=== PATIENT | male | born 1940 | race Caucasian/White ===

== ENCOUNTER 2017-05-20 09:16 | Emergency (ER) | payer MEDICARE, OTHER ==
[2017-05-20] MEDS ORDERED: Sodium Chloride 0.9% 10 ML Syringe FLUSH PRN (09:36)
[2017-05-20] MEDS ORDERED: Albuterol/Ipratropium 3.0-0.5 MG/3 ML Neb Soln NEB ONE (09:37)
[2017-05-20] MEDS ORDERED: methylPREDNISolone Sodium Succinate 125 MG/2 ML SDV IVPUSH ONE (09:38)
--- NOTE | 2017-05-20 09:45 | EDM.PDOC ---
ED HPI GENERAL MEDICAL PROBLEM - General Chief Complaint: Respiratory Problem Stated Complaint: [facility] Time Seen by Provider: 05/20/17 09:25 Source of Information: Reports: Patient, EMS, Family History Limitations: Reports: No Limitations - History of Present Illness INITIAL COMMENTS - FREE TEXT/NARRATIVE: The patient presents with increased shortness of breath. He arrives by [facility] from his home. 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 He recently moved to [place] from [place]. His primary doctor is Dr Hope and his carding machine operator is Dr Gomez. He recently had his prednisone decreased from 25mg to 20mg and he says this will happen when he does this. He said the increased shortness of breath started today. He came out of the bathroom and it happened. He denies chest pain. He has no fever or chills. He does have a cough at times with yellowish/white sputum. He has edema in his left leg. He says that has been there for about 1 month. He did not have that checked. He has no history of DVT or PE. He has no abdominal pain, nausea or vomiting. He did just get over shingles. Onset: Sudden Duration: Hour(s): Severity: Moderate Worsens with: Reports: Movement Context: Reports: Activity (He was coming out of the bathroom when this started) Associated Symptoms: Reports: Cough, cough w sputum, Shortness of Breath. Denies: Chest Pain, Fever/Chills, Nausea/Vomiting - Related Data Allergies Allergy/AdvReac Type Severity Reaction Status Date / Time No Known Allergies Allergy Verified 05/20/17 09:28 Home Meds: Home Meds Albuterol Sulfate 1 dose INH TID 05/20/17 [History] Albuterol Sulfate [Proventil Hfa] 1 dose INH ASDIRECTED PRN 05/20/17 [History] Aspirin [Adult Low Dose Aspirin EC] 81 mg PO BID 05/20/17 [History] Cholecalciferol (Vitamin D3) [Vitamin D3] 1 tab PO DAILY 05/20/17 [History] Glimepiride [Amaryl] 4 mg PO BID 05/20/17 [History] Glucosa [place] 2KCl/Chondroitin Rivers [Glucosamine-Chondroitin Cap] 2 tab PO DAILY 12/28 [History] Insulin Isophane NPH, Human [NovoLIN N] 40 units SUBCUT DAILY 05/20/17 [History] Multivitamin with Minerals [Multivitamins with Minerals] 1 tab PO DAILY [History] Mycophenolate Mofetil [Cellcept] 1,000 mg PO BID 05/20/17 [History] [place]-3/DHA/Epa/Fish Oil [[place]-3 Fish Oil 1,200 MG Sfgl] 1,200 mg PO DAILY 12/28 [History] Pantoprazole Sodium [Protonix] 40 mg PO DAILY 05/20/17 [History] Potassium Chloride 20 meq PO DAILY 05/20/17 [History] Prednisone [IMW: predniSONE] 20 mg PO DAILY 05/20/17 [History] Simvastatin [Zocor] 20 mg PO DAILY 05/20/17 [History] Sulfamethoxazole/Trimethoprim [Bactrim Ds Tablet] 1 tab PO MOWEFR 05/20/17 [ History] metFORMIN HCl [Metformin HCl] 1,000 mg PO BID 05/20/17 [History] Past Medical History Cardiovascular History: Reports: Heart Failure Respiratory History: Reports: Interstitial Lung Disease, Other (See Below) Other Respiratory History: rheumatoid lung, 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 Harmon and Dr. Raygoza in [place] Endocrine/Metabolic History: Reports: Diabetes, Type II Social & Family History - Tobacco Use Smoking Status *Q: Former Smoker Used Tobacco, but Quit: Yes Month Tobacco Last Used: 1985 - Caffeine Use Caffeine Use: Reports: Soda, Tea - Recreational Drug Use Recreational Drug Use: No ED ROS GENERAL - Review of Systems Review Of Systems: See Below Constitutional: Reports: No Symptoms HEENT: Reports: No Symptoms Respiratory: Reports: Shortness of Breath, Cough, Sputum Cardiovascular: Reports: Edema (Left leg). Denies: Chest Pain Endocrine: Reports: No Symptoms GI/Abdominal: Reports: No Symptoms : Reports: No Symptoms Musculoskeletal: Reports: Other (Edema of the left leg) ED EXAM, GENERAL - Physical Exam Exam: See Below Exam Limited By: No Limitations General Appearance: Alert, No Apparent Distress Ears: Normal External Exam Nose: Normal Inspection Head: Atraumatic, Normocephalic Neck: Normal Inspection Respiratory/Chest: No Respiratory Distress, Decreased Breath Sounds, Wheezing ( Mild) Cardiovascular: Regular Rate, Rhythm, No Murmur, Other (Moderate edema to the left leg) Course - Vital Signs Last Recorded V/S: Last Vital Signs Temp 96.7 F 05/20/17 09:23 Pulse 81 05/20/17 09:23 Resp 20 05/20/17 09:23 BP 146/76 H 05/20/17 09:23 Pulse Ox 96 05/20/17 09:59 - Orders/Labs/Meds Orders: Active Orders 24 hr Category Date Time Status Cardiac Monitoring [RC] . DIRECTED Care 05/20/17 09:36 Active EKG Documentation Completion [RC] STAT Care 05/20/17 09:37 Active Oxygen Therapy [RC] PRN Care 05/20/17 09:36 Active Peripheral IV Care [RC] . DIRECTED Care 05/20/17 09:37 Active RT Aerosol Therapy [RC] ASDIRECTED Care 05/20/17 09:38 Active Chest 1V Frontal [CR] Stat Exams 05/20/17 09:37 Taken VL Duplex Lwr Ext Veins Ltd Lt [US] Stat Exams 05/20/17 09:38 Taken PRO B-TYPE NATRIUR PEPT,BNPPRO [CHEM] Stat Lab 05/20/17 09:36 Ordered Sodium Chloride 0.9% [Saline Flush] Med 05/20/17 09:36 Active 10 ml FLUSH ASDIRECTED PRN Peripheral IV Insertion Adult [OM.PC] Stat Oth 05/20/17 09:36 Ordered Medication Orders Sodium Chloride (Saline Flush) 10 ml FLUSH ASDIRECTED PRN PRN Reason: Keep Vein Open Last Admin: 05/20/17 09:53 Dose: 10 ml Labs: Laboratory Tests 05/20/17 05/20/17 05/20/17 Range/Units 09:53 09:53 09:53 WBC 8.86 (4.23-9.07) K/mm3 RBC 4.21 L (4.63-6.08) M/mm3 Hgb 11.7 L (13.7-17.5) gm/L Hct 37.2 L (40.1-51.0) % MCV 88.4 (79.0-92.2) fl MCH 27.8 (25.7-32.2) pg MCHC 31.5 L (32.2-35.5) g/dl RDW Std Deviation 44.8 H (35.1-43.9) fL Plt Count 269 (163-337) K/mm3 MPV 9.8 (9.4-12.3) fl Neut % (Auto) 63.7 (34.0-67.9) % Lymph % (Auto) 21.9 (21.8-53.1) % [place] % (Auto) 8.0 (5.3-12.2) % Eos % (Auto) 5.3 (0.8-7.0) Baso % (Auto) 0.2 (0.1-1.2) % Neut # (Auto) 5.64 H (1.78-5.38) K/mm3 Lymph # (Auto) 1.94 (1.32-3.57) K/mm3 [place] # (Auto) 0.71 (0.30-0.82) K/mm3 Eos # (Auto) 0.47 (0.04-0.54) K/mm3 Baso # (Auto) 0.02 (0.01-0.08) K/mm3 D-Dimer, Quantitative 0.45 (0.19-0.59) mg/L Sodium 142 (136-145) mEq/L Potassium 3.5 (3.5-5.1) mEq/L Chloride 102 (98-107) mEq/L Carbon Dioxide 34 H (21-32) mEq/L Anion Gap 9.5 (5-15) BUN 19 H (7-18) mg/dL Creatinine 1.1 (0.7-1.3) mg/dL Est Cr Clr Drug Dosing 64.67 mL/min Estimated GFR (MDRD) > 60 (>60) mL/min BUN/Creatinine Ratio 17.3 (14-18) Glucose 107 (83-115) mg/dL Calcium 9.0 (8.5-10.1) mg/dL Total Bilirubin 0.4 (0.2-1.0) mg/dL AST 20 (15-37) U/L ALT 38 (16-63) U/L Alkaline Phosphatase 60 (46-116) U/L Troponin I < 0.017 (0.00-0.056) ng/mL Total Protein 6.4 (6.4-8.2) g/dl Albumin 3.0 L (3.4-5.0) g/dl Globulin 3.4 gm/dL Albumin/Globulin Ratio 0.9 L (1-2) Meds: Medications Generic Name Dose Route Start Last Admin Trade Name Hans PRN Reason Stop Dose Admin Sodium Chloride 10 ml 05/20/17 09:36 05/20/17 09:53 Saline Flush FLUSH 10 ml ASDIRECTED PRN Administration Keep Vein Open Discontinued Medications Generic Name Dose Route Start Last Admin Trade Name Hans PRN Reason Stop Dose Admin Albuterol/Ipratropium 3 ml 05/20/17 09:37 05/20/17 09:58 Duoneb 3.0-0.5 Mg/3 Ml NEB 05/20/17 09:38 3 ml ONETIME ONE Administration Methylprednisolone Sodium Succinate 60 mg 05/20/17 09:38 05/20/17 09:53 Solu-Medrol IVPUSH 05/20/17 09:39 60 mg ONETIME ONE Administration - Re-Assessments/Exams Free Text/Narrative Re-Assessment/Exam: 05/20/17 09:46 I ordered oxygen, IV saline lock, EKG, CXR, labs, US of his left leg, solu- medrol 60mg IV and a duoneb. 05/20/17 11:31 His EKG shows a NSR with no acute changes. His CXR shows interstitial lung disease but no infiltrates. His CBC looks good. His CMP looks good. His D- dimer was negative. His troponin is negative. The US of his left leg is negative for DVT. He feels better. I feel he needs to go back up to the 25mg daily of prednisone. Departure - Departure Time of Disposition: 11:35 Disposition: Home, Self-Care 01 Condition: Good Clinical Impression: Interstitial lung disease, Edema of left lower extremity Dyspnea Qualifiers: Dyspnea type: shortness of breath Qualified Code(s): R06.02 - Shortness of breath; R06.00 - Dyspnea, unspecified; R06.01 - Orthopnea - Discharge Information Referrals: PCP,None [Primary Care Provider] - Renato Mueller MD [Physician] - 1 Week Forms: ED Department Discharge Additional Instructions: Take your medication as prescribed but increase your prednisone to 25mg daily. Call your carding machine operator at let him know what happened. Follow up with Dr Mueller one of our internal medicine doctors in [facility]. Some other internal medicine doctors are Dr Caballero, Dr Elizondo and Dr Schwartz. They are all very good doctors and other options if you cannot get into see Dr Mueller. Please return if you are worse. - My Orders Last 24 Hours: My Active Orders 05/20/17 09:36 Cardiac Monitoring [RC] . DIRECTED Oxygen Therapy [RC] PRN PRO B-TYPE NATRIUR PEPT,BNPPRO [CHEM] Stat Sodium Chloride 0.9% [Saline Flush] 10 ml FLUSH ASDIRECTED PRN Peripheral IV Insertion Adult [OM.PC] Stat 05/20/17 09:37 EKG Documentation Completion [RC] STAT Peripheral IV Care [RC] . DIRECTED Chest 1V Frontal [CR] Stat 05/20/17 09:38 RT Aerosol Therapy [RC] ASDIRECTED VL Duplex Lwr Ext Veins Ltd Lt [US] Stat - Assessment/Plan Last 24 Hours: My Active Orders 05/20/17 09:36 Cardiac Monitoring [RC] . DIRECTED Oxygen Therapy [RC] PRN PRO B-TYPE NATRIUR PEPT,BNPPRO [CHEM] Stat Sodium Chloride 0.9% [Saline Flush] 10 ml FLUSH ASDIRECTED PRN Peripheral IV Insertion Adult [OM.PC] Stat 05/20/17 09:37 EKG Documentation Completion [RC] STAT Peripheral IV Care [RC] . DIRECTED Chest 1V Frontal [CR] Stat 05/20/17 09:38 RT Aerosol Therapy [RC] ASDIRECTED VL Duplex Lwr Ext Veins Ltd Lt [US] Stat
--- NOTE | 2017-05-22 08:01 | US ---
Left lower extremity deep venous ultrasound: Duplex and color flow imaging was obtained of the left common femoral, proximal greater saphenous, superficial femoral, popliteal, posterior tibial and peroneal veins. Right common femoral vein was also evaluated. Findings: Normal compression, phasic flow and augmentation are seen within the left lower extremity deep veins. Right common femoral vein shows normal augmentation. Impression: 1. No findings of deep venous thrombosis within the left lower extremity or within the right common femoral vein. Diagnostic code #1 I agree with preliminary report from [facility], finalized at 05/20/17, 12:09 PM Central Time
--- NOTE | 2017-05-22 08:01 | CR ---
Chest: Frontal view of the chest was obtained. Comparison: No prior chest x-ray. Heart size is normal. Widening of the mediastinum is seen which is felt to be chronic. Diffuse increased lung markings are seen. Lungs otherwise are clear with no alveolar type densities. Bony structures show degenerative change within the left hip and osteopenia. Impression: 1. Diffuse increased lung markings. Without old studies uncertain if findings are due to diffuse fibrosis or represent acute interstitial change. Former etiology is felt to be most likely. 2. Other incidental findings. Diagnostic code #3
== END 2017-05-20 11:50 | disposition home or self-care (01) ==
LOC: JD.ED 09:16
DX: J84.9 Interstitial pulmonary disease, unspecified (principal); R60.0 Localized edema; R06.00 Dyspnea, unspecified; I50.9 Heart failure, unspecified; E11.9 Type 2 diabetes mellitus without complications; Z87.891 Personal history of nicotine dependence; Z79.4 Long term (current) use of insulin; Z79.899 Other long term (current) drug therapy
CPT/HCPCS: 36415; 71045; 80053; 83880; 84484; 85025; 85379; 93005; 93971; 94640; 96374; 99285; J2930; J7050; 99284

== ENCOUNTER 2018-05-12 13:26 | Emergency (ER) | payer MEDICARE, OTHER ==
--- NOTE | 2018-05-12 13:51 | EDM.PDOC ---
ED HPI GENERAL MEDICAL PROBLEM - General Chief Complaint: Neurological Problem Stated Complaint: [facility] Time Seen by Provider: 05/12/18 13:37 Source of Information: Reports: Patient, RN Notes Reviewed - History of Present Illness INITIAL COMMENTS - FREE TEXT/NARRATIVE: 77 year old male has been brought in by ambulance status post fall at home, he became ill with worsening cough last evening, chills, possible fever. He has been weak today, needed help to get up out of a chair, was walking to the bathroom when he fell. Not clear if he tripped or just simply lost his balance due to underlying weakness. Unable to get up on his own, EMS called, seemed very droopy, lethargic at scene, transported here without further incident. 15:15. His and other family here, able to give more detailed hx. She states he has underlying interstitial lung disease, pulmonary fibrosis on chronically at 8 L NC. Also diabetic on insulin and metformin. - Related Data Allergies Allergy/AdvReac Type Severity Reaction Status Date / Time No Known Allergies Allergy Verified 05/12/18 13:40 Home Meds: Home Meds Albuterol Sulfate 1 dose INH TID 05/20/17 [History] Albuterol Sulfate [Proventil Hfa] 1 dose INH ASDIRECTED PRN 05/20/17 [History] Aspirin [Adult Low Dose Aspirin EC] 81 mg PO BID 05/20/17 [History] Cholecalciferol (Vitamin D3) [Vitamin D3] 5,000 unit PO DAILY 05/20/17 [History] Glucosa Rivers 2KCl/Chondroitin Rivers [Glucosamine-Chondroitin Cap] 2 tab PO DAILY 12/28 [History] Insulin Isophane NPH, Human [NovoLIN N] 40 units SUBCUT DAILY 05/20/17 [History] Multivitamin with Minerals [Multivitamins with Minerals] 1 tab PO DAILY [History] [place]-3/DHA/Epa/Fish Oil [[place]-3 Fish Oil 1,200 MG Sfgl] 1,200 mg PO DAILY 12/28 [History] Pantoprazole Sodium [Protonix] 40 mg PO DAILY 05/20/17 [History] Potassium Chloride 20 meq PO BID 05/20/17 [History] Prednisone [IMW: predniSONE] 25 mg PO DAILY 05/20/17 [History] Simvastatin [Zocor] 40 mg PO DAILY 05/20/17 [History] Sulfamethoxazole/Trimethoprim [Bactrim Ds Tablet] 1 tab PO MOWEFR 05/20/17 [ History] metFORMIN HCl [Metformin HCl] 1,000 mg PO BID 05/20/17 [History] Ellipta. 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 Raygoza in [place] Endocrine/Metabolic History: Reports: Diabetes, Type II Social & Family History - Caffeine Use Caffeine Use: Reports: Soda, Tea ED ROS GENERAL - Review of Systems Review Of Systems: Unable To Obtain (ROS somewhat limited, patient does not volunteer any information, does answer simple questions, more information obtained from after she arrived) Constitutional: Reports: Fever, Chills HEENT: Reports: Other (nasal clair. ). Denies: Throat Pain Respiratory: Reports: Shortness of Breath (chronically), Cough, Sputum ( occasional) Cardiovascular: Reports: Lightheadedness. Denies: Chest Pain GI/Abdominal: Denies: Abdominal Pain, Diarrhea, Vomiting Skin: Denies: Rash Neurological: Reports: Dizziness - Physical Exam Exam: See Below Exam Limited By: Altered Mental Status General Appearance: Other (very overweight, drowsy, does arouse to answer simple questions) Eye Exam: Bilateral Eye: PERRL Throat/Mouth: Normal Inspection, Normal Oropharynx Head Exam: Other (abrasion anterior forehead) Neck: Non-Tender Respiratory/Chest: Respiratory Distress (moderate tachypnea) Cardiovascular: Tachycardia GI/Abdominal: Soft, Non-Tender Neuro Exam (Abbreviated): No Motor/Sensory Deficits, Other (moderately drowsy, he does open eyes, answers simple questions, does not volunteer any information) Extremities: Pedal Edema (bilat, greater L than R) Skin Exam: Warm, Dry, Normal Color, No Rash Course - Vital Signs Last Recorded V/S: Last Vital Signs Temp 103.1 F H 05/12/18 14:31 Pulse 101 H 05/12/18 13:34 Resp 35 H 05/12/18 13:34 BP 129/62 05/12/18 13:34 Pulse Ox 91 L 05/12/18 16:07 - Orders/Labs/Meds Orders: Active Orders 24 hr Category Date Time Status EKG 12 Lead [EKG Documentation Completion] [RC] STAT Care 05/12/18 14:09 Active POC Glucose [Blood Glucose Check, Bedside] [RC] ONETIME Care 05/12/18 13:50 Active RT Aerosol Therapy [RC] ASDIRECTED Care 05/12/18 15:49 Active Chest 1V Frontal [CR] Stat Exams 05/12/18 13:49 Taken CULTURE BLOOD [BC] Stat Lab 05/12/18 14:20 Received CULTURE BLOOD [BC] Stat Lab 05/12/18 14:30 Received PRO B-TYPE NATRIUR PEPT,BNPPRO [CHEM] Stat Lab 05/12/18 14:20 Received Sodium Chloride 0.9% [Normal Saline] 1,000 ml Med 05/12/18 16:15 Active IV ONETIME Medication Orders Sodium Chloride (Normal Saline) 1,000 mls @ 999 mls/hr IV ONETIME FERNANDA Last Admin: 05/12/18 17:04 Dose: 999 mls/hr Labs: Laboratory Tests 05/12/18 05/12/18 05/12/18 Range/Units 14:20 14:20 14:20 WBC 10.09 H (4.23-9.07) K/mm3 RBC 4.54 L (4.63-6.08) M/mm3 Hgb 12.8 L (13.7-17.5) gm/L Hct 40.9 (40.1-51.0) % MCV 90.1 (79.0-92.2) fl MCH 28.2 (25.7-32.2) pg MCHC 31.3 L (32.2-35.5) g/dl RDW Std Deviation 48.2 H (35.1-43.9) fL Plt Count 260 (163-337) K/mm3 MPV 9.6 (9.4-12.3) fl Neut % (Auto) 75.3 H (34.0-67.9) % Lymph % (Auto) 10.2 L (21.8-53.1) % [place] % (Auto) 11.0 (5.3-12.2) % Eos % (Auto) 2.4 (0.8-7.0) Baso % (Auto) 0.2 (0.1-1.2) % Neut # (Auto) 7.60 H (1.78-5.38) K/mm3 Lymph # (Auto) 1.03 L (1.32-3.57) K/mm3 [place] # (Auto) 1.11 H (0.30-0.82) K/mm3 Eos # (Auto) 0.24 (0.04-0.54) K/mm3 Baso # (Auto) 0.02 (0.01-0.08) K/mm3 Puncture Site ABG pH (7.35-7.45) ABG pCO2 (35.0-45.0) mmHg ABG pO2 (80.0-100.0) mmHg ABG HCO3 (22.0-26.0) meq/L ABG O2 Saturation (96.0-97.0) % ABG Base Excess (-2-2.0) Ross Test O2 Delivery Device Oxygen Flow Rate FiO2 (21.00-100.00) % Sodium 140 (136-145) mEq/L Potassium 3.7 (3.5-5.1) mEq/L Chloride 100 (98-107) mEq/L Carbon Dioxide 33 H (21-32) mEq/L Anion Gap 10.7 (5-15) BUN 20 H (7-18) mg/dL Creatinine 1.4 H (0.7-1.3) mg/dL Est Cr Clr Drug Dosing 50.04 mL/min Estimated GFR (MDRD) 49 (>60) mL/min BUN/Creatinine Ratio 14.3 (14-18) Glucose 84 (83-115) mg/dL Lactic Acid (0.4-2.0) mmol/L Calcium 9.6 (8.5-10.1) mg/dL Total Bilirubin 0.8 (0.2-1.0) mg/dL AST 46 H (15-37) U/L ALT 75 H (16-63) U/L Alkaline Phosphatase 64 (46-116) U/L C-Reactive Protein 3.1 H* (<1.0) mg/dL Total Protein 7.3 (6.4-8.2) g/dl Albumin 3.3 L (3.4-5.0) g/dl Globulin 4.0 gm/dL Albumin/Globulin Ratio 0.8 L (1-2) 05/12/18 05/12/18 Range/Units 14:35 18:06 WBC (4.23-9.07) K/mm3 RBC (4.63-6.08) M/mm3 Hgb (13.7-17.5) gm/L Hct (40.1-51.0) % MCV (79.0-92.2) fl MCH (25.7-32.2) pg MCHC (32.2-35.5) g/dl RDW Std Deviation (35.1-43.9) fL Plt Count (163-337) K/mm3 MPV (9.4-12.3) fl Neut % (Auto) (34.0-67.9) % Lymph % (Auto) (21.8-53.1) % [place] % (Auto) (5.3-12.2) % Eos % (Auto) (0.8-7.0) Baso % (Auto) (0.1-1.2) % Neut # (Auto) (1.78-5.38) K/mm3 Lymph # (Auto) (1.32-3.57) K/mm3 [place] # (Auto) (0.30-0.82) K/mm3 Eos # (Auto) (0.04-0.54) K/mm3 Baso # (Auto) (0.01-0.08) K/mm3 Puncture Site Lt radial ABG pH 7.43 (7.35-7.45) ABG pCO2 45.6 H (35.0-45.0) mmHg ABG pO2 63.0 L (80.0-100.0) mmHg ABG HCO3 29.8 H (22.0-26.0) meq/L ABG O2 Saturation 91.6 L (96.0-97.0) % ABG Base Excess 5.2 H (-2-2.0) Ross Test Positive O2 Delivery Device Nasal cannula Oxygen Flow Rate 8.0 FiO2 0.00 L (21.00-100.00) % Sodium (136-145) mEq/L Potassium (3.5-5.1) mEq/L Chloride (98-107) mEq/L Carbon Dioxide (21-32) mEq/L Anion Gap (5-15) BUN (7-18) mg/dL Creatinine (0.7-1.3) mg/dL Est Cr Clr Drug Dosing mL/min Estimated GFR (MDRD) (>60) mL/min BUN/Creatinine Ratio (14-18) Glucose (83-115) mg/dL Lactic Acid 2.4 H (0.4-2.0) mmol/L Calcium (8.5-10.1) mg/dL Total Bilirubin (0.2-1.0) mg/dL AST (15-37) U/L ALT (16-63) U/L Alkaline Phosphatase (46-116) U/L C-Reactive Protein (<1.0) mg/dL Total Protein (6.4-8.2) g/dl Albumin (3.4-5.0) g/dl Globulin gm/dL Albumin/Globulin Ratio (1-2) Meds: Medications Generic Name Dose Route Start Last Admin Trade Name Freq PRN Reason Stop Dose Admin Sodium Chloride 1,000 mls @ 999 mls/hr 05/12/18 16:15 05/12/18 17:04 Normal Saline IV 999 mls/hr ONETIME FERNANDA Administration Discontinued Medications Generic Name Dose Route Start Last Admin Trade Name Freq PRN Reason Stop Dose Admin Acetaminophen 975 mg 05/12/18 15:24 05/12/18 16:00 Tylenol PO 05/12/18 15:25 975 mg NOW ONE Administration Albuterol/Ipratropium 3 ml 05/12/18 15:48 05/12/18 16:04 Duoneb 3.0-0.5 Mg/3 Ml NEB 05/12/18 15:49 3 ml ONETIME ONE Administration Iopamidol 100 ml 05/12/18 16:32 05/12/18 16:46 Isovue-300 (61%) IVPUSH 05/12/18 16:33 100 ml ONETIME ONE Administration Methylprednisolone Sodium Succinate 125 mg 05/12/18 18:24 05/12/18 18:49 Solu-Medrol IVPUSH 05/12/18 18:25 125 mg ONETIME ONE Administration Oseltamivir Phosphate 75 mg 05/12/18 15:52 05/12/18 16:01 Tamiflu PO 05/12/18 15:53 75 mg ONETIME ONE Administration Sodium Chloride 10 ml 05/12/18 16:32 05/12/18 16:46 Saline Flush FLUSH 05/12/18 16:33 10 ml ONETIME ONE Administration - Re-Assessments/Exams Free Text/Narrative Re-Assessment/Exam: 05/12/18 05/12/18 16:[address] Tovar regarding hospital admission, blood culture obtained on arrival to ED, has Influ. A. He did get a flu shot this year. CXR shows severe severe increase interstitial markings similar to CXR of 1 yr ago read out as pul fibrosis. WBC 10,000. O2 sats have been running 90 to 92 % at 8 L NC which is what he uses at home. Labs indicate he is likely somewhat dehydrated. Will give 1 liter NS. Lactic acid elevated at 2.4. Dr Tovar has requested chest CT to check for pneumonia. 17:40. chest CT does not show pneumonia. Patient more alert after 1 liter NS. 18:00 Dr Tovar has seen patient, requesting he be transferred to [facility] due to underlying pul fibrosis, diabetes, high risk for complications, even . Family would prefer he be admitted here but OK with transfer. 18:35. Has taken 35 minutes to complete transfer, long wait for admission coordinator to call back and than a shorter wait for Hospitalist. Dr Morales, Hospitalist for [facility] does accept patient for direct admit. 18:55. [place] ambulance crew tied up with a different transfer, no other crew available, [facility] willing to come down and transfer patient. With transfer in mind have done ABG's, they are OK, Ph 7.43, PO2 63, C02 45.6. see labs for details. 05/12/18 19:34. Although patient had fever, tachypnea, tachycardia and relative hypoxia he has underlying illness, now influenza on top of that. It is not expected that he is septic. He is being transferred. Admission process started about 3 1/2 hrs ago. Patient is now more alert, breathing, moving air more comfortably after nebs, IV fluid, tylenol. Actually asked to go home awhile ago. That is not reasonable. Repeat lactic acid not ordered. Departure - Departure Time of Disposition: 18:30 Disposition: DC/Tfer to Acute Hospital 02 Condition: Serious Clinical Impression: Influenza A, Pulmonary fibrosis - Discharge Information Referrals: Renato Mueller MD [Primary Care Provider] - Forms: ED Department Discharge - My Orders Last 24 Hours: My Active Orders 05/12/18 13:49 Chest 1V Frontal [CR] Stat 05/12/18 13:50 POC Glucose [Blood Glucose Check, Bedside] [RC] ONETIME 05/12/18 14:09 EKG 12 Lead [EKG Documentation Completion] [RC] STAT 05/12/18 14:20 CULTURE BLOOD [BC] Stat PRO B-TYPE NATRIUR PEPT,BNPPRO [CHEM] Stat 05/12/18 14:30 CULTURE BLOOD [BC] Stat 05/12/18 15:49 RT Aerosol Therapy [RC] ASDIRECTED 05/12/18 16:15 Sodium Chloride 0.9% [Normal Saline] 1,000 ml IV ONETIME - Assessment/Plan Last 24 Hours: My Active Orders 05/12/18 13:49 Chest 1V Frontal [CR] Stat 05/12/18 13:50 POC Glucose [Blood Glucose Check, Bedside] [RC] ONETIME 05/12/18 14:09 EKG 12 Lead [EKG Documentation Completion] [RC] STAT 05/12/18 14:20 CULTURE BLOOD [BC] Stat PRO B-TYPE NATRIUR PEPT,BNPPRO [CHEM] Stat 05/12/18 14:30 CULTURE BLOOD [BC] Stat 05/12/18 15:49 RT Aerosol Therapy [RC] ASDIRECTED 05/12/18 16:15 Sodium Chloride 0.9% [Normal Saline] 1,000 ml IV ONETIME
--- NOTE | 2018-05-12 15:03 | CT ---
Head CT Technique: Multiple axial sections through the brain were obtained. Intravenous contrast was not utilized. Comparison: No prior intracranial imaging. Findings: Ventricles along with basal cisterns and sulci over the convexities are mildly prominent. No abnormal parenchymal densities are seen. No evidence of intracranial hemorrhage. No midline shift or mass effect is seen. Bone window settings were reviewed which shows no acute calvarial abnormality. 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 No acute finding is seen within the paranasal sinuses. Impression: 1. Mild generalized atrophy. 2. 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 3. No acute intracranial abnormality is identified. Diagnostic code #2
[2018-05-12] MEDS ORDERED: Acetaminophen 325 MG Tab PO ONE (15:24)
[2018-05-12] MEDS ORDERED: Albuterol/Ipratropium 3.0-0.5 MG/3 ML Neb Soln NEB ONE (15:48)
[2018-05-12] MEDS ORDERED: Oseltamivir 75 MG Cap PO ONE (15:52)
[2018-05-12] MEDS ORDERED: Sodium Chloride 0.9% 1,000 ML IV SCH (16:15)
[2018-05-12] MEDS ORDERED: Sodium Chloride 0.9% 10 ML Syringe FLUSH ONE (16:32)
[2018-05-12] MEDS ORDERED: Iopamidol 612 MG/ML 100 ML Bottle IVPUSH ONE (16:32)
--- NOTE | 2018-05-12 17:03 | CT ---
CT chest Technique: Multiple axial sections through the chest were obtained. Intravenous contrast was utilized. Comparison: Prior chest x-ray of 05/20/17 and 05/12/18 (1:54 PM). Findings: Diffuse pulmonary fibrosis is seen. No focal parenchymal change is seen. I do not believe any acute change is present within either lung. Slight pleural thickening is noted on both sides of the chest which is most likely chronic. Mediastinum shows several lymph nodes which are most likely incidental and due to old inflammatory change. Aorta shows no aneurysm with atherosclerotic calcification. Mild coronary artery calcification is seen. Small hiatal hernia is noted. Fatty infiltration noted within the liver. Bone window settings shows scattered degenerative change throughout the spine. No acute osseous abnormality is appreciated. Impression: 1. Severe pulmonary fibrosis. Nothing acute is suspected within either lung. Other incidental findings. Diagnostic code #3
[2018-05-12] MEDS ORDERED: methylPREDNISolone Sodium Succinate 125 MG/2 ML SDV IVPUSH ONE (18:24)
--- NOTE | 2018-05-13 13:18 | CR ---
Chest: Portable view of the chest was obtained. Comparison: Prior chest x-ray of 05/20/17. Pulmonary vessels are congested. Focal density is noted within the right upper lung. Heart size at the upper limits of normal. Tortuous thoracic aorta is seen. Bony structures are grossly intact. Impression: 1. Pulmonary vascular congestion. This appears fairly stable from prior exam and uncertain how much of this is acute versus chronic. 2. Focal density within the right upper lung most likely representing superimposed area of pneumonia given history of cough and fever. Diagnostic code #3
== END 2018-05-12 19:35 ==
LOC: JD.ED 13:26
DX: J10.1 Influenza due to other identified influenza virus with other respiratory manifestations (principal); E11.9 Type 2 diabetes mellitus without complications; J84.10 Pulmonary fibrosis, unspecified; Z79.899 Other long term (current) drug therapy
CPT/HCPCS: 36415; 36600; 70450; 71045; 71260; 80053; 82803; 82962; 83605; 83880; 85025; 86140; 87040; 87804; 93005; 94640; 96361; 96374; 99285; A9270; J2930; J7040; Q9967; 93010; 99284; J7620-GY

== ENCOUNTER 2018-06-18 17:01 | Emergency (ER) | payer MEDICARE, OTHER ==
--- NOTE | 2018-06-18 17:39 | EDM.PDOC ---
ED HPI GENERAL MEDICAL PROBLEM - General Chief Complaint: Cardiovascular Problem Stated Complaint: [facility] Time Seen by Provider: 06/18/18 17:15 Source of Information: Reports: Patient, Family History Limitations: Reports: No Limitations - History of Present Illness INITIAL COMMENTS - FREE TEXT/NARRATIVE: Patient is a 77-year-old male with a history of interstitial lung disease, O2 dependence, atrial fibrillation, poor pulmonary function who presents to the ED complaining of episode of atrial fibrillation in the 170s with increasing shortness of breath. Patient states earlier today developed increasing shortness of breath with exertion a little worse than normal. He was notified by Hoangdulce Harperck that his monitor indicated a heart rate in the 170s which was atrial fibrillation. He was instructed to come to the emergency department immediately. Upon admission to the ED patients heart rate is within normal limits sinus in nature. At no time has patient developed any chest pain associated with this. He did have some slight discomfort to the left side of his neck and his left arm that has dissipated. States he slept wrong on his neck. He has not felt as if he is going to pass out at any time. There's been no abdominal pain associated with this nor any diaphoresis, nausea/vomiting, or any additional complaints. He was evaluated May 16, 2018 with a diagnosis of influenza. He was transferred to [place] where he had a episode of atrial fibrillation and was placed on metoprolol. He's had no further episodes up until today. Patient is a poorly controlled diabetic. EMS was contacted and the patient was transported to the ED. Patient remains sinus rhythm with PACs. Per patient he is on Eliquis. Left Neck Pain Score (Numeric/FACES): 6 - Related Data Allergies Allergy/AdvReac Type Severity Reaction Status Date / Time No Known Allergies Allergy Verified 05/12/18 13:40 Home Meds: Home Meds Albuterol Sulfate 1 dose INH BID 05/20/17 [History] Albuterol Sulfate [Proventil Hfa] 1 dose INH Q4H PRN 05/20/17 [History] Aspirin [Adult Low Dose Aspirin EC] 81 mg PO BID 05/20/17 [History] Insulin Isophane NPH, Human [NovoLIN N] 40 units SUBCUT DAILY 05/20/17 [History] Multivitamin with Minerals [Multivitamins with Minerals] 1 tab PO DAILY [History] Presho-3/DHA/Epa/Fish Oil [Presho-3 Fish Oil 1,200 MG Sfgl] 2,000 mg PO DAILY 12/28 [History] Pantoprazole Sodium [Protonix] 40 mg PO DAILY 05/20/17 [History] Potassium Chloride 20 meq PO BID 05/20/17 [History] Prednisone [IMW: predniSONE] 25 mg PO DAILY 05/20/17 [History] Simvastatin [Zocor] 40 mg PO DAILY 05/20/17 [History] Glucosamine/D3/Boswellia Nalini [Osteo Bi-Flex Caplet] 2 tab PO DAILY 05/12/18 [ History] Budesonide [Pulmicort] 1 inh NEB BID 06/18/18 [History] Ergocalciferol (Vitamin D2) [Vitamin D2] 0 mg PO DAILY 06/18/18 [History] Furosemide 80 mg PO DAILY 06/18/18 [History] Glimepiride 4 mg PO BID 06/18/18 [History] Metoprolol Succinate [Toprol XL] 25 mg PO DAILY 06/18/18 [History] Sulfamethoxazole/Trimethoprim [Bactrim Ds Tablet] 1 tab PO MOWEFR 06/18/18 [ History] Umeclidinium Brm/Vilanterol Tr [Anoro Ellipta 62.5-25 MCG] 1 puff INH DAILY 10/29 [History] metFORMIN HCl [Metformin HCl] 1,000 mg PO BID 06/18/18 [History] Past Medical History Cardiovascular History: Reports: Afib, Heart Failure, High Cholesterol, Hypertension Respiratory History: Reports: Interstitial Lung Disease, Other (See Below) Other Respiratory History: rheumatoid lung, 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 Harmon and Dr. Raygoza in [place] Musculoskeletal History: Reports: Other (See Below) Other Musculoskeletal History: rt hand with silicone joint and tendon repair Endocrine/Metabolic History: Reports: Diabetes, Type II Social & Family History - Tobacco Use Smoking Status *Q: Former Smoker Used Tobacco, but Quit: Yes Month/Year Tobacco Last Used: 1985 - Caffeine Use Caffeine Use: Reports: Coffee, Soda, Tea - Recreational Drug Use Recreational Drug Use: No ED ROS GENERAL - Review of Systems Review Of Systems: ROS reveals no pertinent complaints other than HPI. ED EXAM, GENERAL - Physical Exam Exam: See Below Exam Limited By: No Limitations (Able to speak in full sentences with 8 liters per minute nasal cannula.) General Appearance: Alert, WD/WN, No Apparent Distress Eye Exam: Bilateral Eye: Normal Inspection Ears: Hearing Grossly Normal Nose: Normal Inspection Throat/Mouth: Normal Voice, No Airway Compromise Neck: Normal Inspection, Supple Respiratory/Chest: No Respiratory Distress, No Accessory Muscle Use, Chest Non- Tender Cardiovascular: Normal Peripheral Pulses, Regular Rate, Rhythm, No Murmur Peripheral Pulses: 2+: Radial (L), Radial (R) GI/Abdominal: Normal Bowel Sounds Extremities: Normal Inspection, Normal Range of Motion, Non-Tender, Pedal Edema (1+ bilaterally) Neurological: Alert, Oriented, CN II-XII Intact, Normal Cognition, No Motor/ Sensory Deficits Psychiatric: Normal Affect, Normal Mood Skin Exam: Warm, Dry, Intact, Normal Color Course - Vital Signs Last Recorded V/S: Last Vital Signs Temp 98.1 F 06/18/18 17:07 Pulse 82 06/18/18 21:35 Resp 21 H 06/18/18 17:07 BP 118/62 06/18/18 21:35 Pulse Ox 8 L 06/18/18 17:07 - Orders/Labs/Meds Labs: Laboratory Tests 06/18/18 06/18/18 06/18/18 Range/Units 17:10 17:10 17:10 WBC 12.90 H (4.23-9.07) K/mm3 RBC 4.64 (4.63-6.08) M/mm3 Hgb 13.0 L (13.7-17.5) gm/L Hct 42.4 (40.1-51.0) % MCV 91.4 (79.0-92.2) fl MCH 28.0 (25.7-32.2) pg MCHC 30.7 L (32.2-35.5) g/dl RDW Std Deviation 49.1 H (35.1-43.9) fL Plt Count 305 (163-337) K/mm3 MPV 10.2 (9.4-12.3) fl Neutrophils % (Manual) 79 H (40-60) % Band Neutrophils % 0 (0-10) % Lymphocytes % (Manual) 16 L (20-40) % Atypical Lymphs % 0 % Monocytes % (Manual) 4 (2-10) % Eosinophils % (Manual) 1 (0.8-7.0) % Basophils % (Manual) 0 L (0.2-1.2) Platelet Estimate Adequate RBC Morph Comment Normal PT 10.4 (9.5-12.1) SECONDS INR 0.95 APTT 24 (24-31) SECONDS Sodium 143 (136-145) mEq/L Potassium 3.8 (3.5-5.1) mEq/L Chloride 101 (98-107) mEq/L Carbon Dioxide 30 (21-32) mEq/L Anion Gap 15.8 H (5-15) BUN 18 (7-18) mg/dL Creatinine 1.3 (0.7-1.3) mg/dL Est Cr Clr Drug Dosing 53.89 mL/min Estimated GFR (MDRD) 54 (>60) mL/min BUN/Creatinine Ratio 13.8 L (14-18) Glucose 218 H (83-115) mg/dL POC Glucose (83-110) mg/dL Calcium 9.6 (8.5-10.1) mg/dL Magnesium 1.3 L (1.8-2.4) mg/dl Total Bilirubin 0.6 (0.2-1.0) mg/dL AST 32 (15-37) U/L ALT 51 (16-63) U/L Alkaline Phosphatase 75 (46-116) U/L Troponin I < 0.017 (0.00-0.056) ng/mL C-Reactive Protein 1.1 H* (<1.0) mg/dL NT-Pro-B Natriuret Pep (0-450) pg/mL Total Protein 7.1 (6.4-8.2) g/dl Albumin 3.2 L (3.4-5.0) g/dl Globulin 3.9 gm/dL Albumin/Globulin Ratio 0.8 L (1-2) Mycoplasma pneumon IgM Negative (NEGATIVE) 06/18/18 06/18/18 06/18/18 Range/Units 17:10 17:18 20:05 WBC (4.23-9.07) K/mm3 RBC (4.63-6.08) M/mm3 Hgb (13.7-17.5) gm/L Hct (40.1-51.0) % MCV (79.0-92.2) fl MCH (25.7-32.2) pg MCHC (32.2-35.5) g/dl RDW Std Deviation (35.1-43.9) fL Plt Count (163-337) K/mm3 MPV (9.4-12.3) fl Neutrophils % (Manual) (40-60) % Band Neutrophils % (0-10) % Lymphocytes % (Manual) (20-40) % Atypical Lymphs % % Monocytes % (Manual) (2-10) % Eosinophils % (Manual) (0.8-7.0) % Basophils % (Manual) (0.2-1.2) Platelet Estimate RBC Morph Comment PT (9.5-12.1) SECONDS INR APTT (24-31) SECONDS Sodium (136-145) mEq/L Potassium (3.5-5.1) mEq/L Chloride (98-107) mEq/L Carbon Dioxide (21-32) mEq/L Anion Gap (5-15) BUN (7-18) mg/dL Creatinine (0.7-1.3) mg/dL Est Cr Clr Drug Dosing mL/min Estimated GFR (MDRD) (>60) mL/min BUN/Creatinine Ratio (14-18) Glucose (83-115) mg/dL POC Glucose 245 H (83-110) mg/dL Calcium (8.5-10.1) mg/dL Magnesium (1.8-2.4) mg/dl Total Bilirubin (0.2-1.0) mg/dL AST (15-37) U/L ALT (16-63) U/L Alkaline Phosphatase (46-116) U/L Troponin I < 0.017 (0.00-0.056) ng/mL C-Reactive Protein (<1.0) mg/dL NT-Pro-B Natriuret Pep 282 (0-450) pg/mL Total Protein (6.4-8.2) g/dl Albumin (3.4-5.0) g/dl Globulin gm/dL Albumin/Globulin Ratio (1-2) Mycoplasma pneumon IgM (NEGATIVE) Meds: Medications Discontinued Medications Generic Name Dose Route Start Last Admin Trade Name Freq PRN Reason Stop Dose Admin Magnesium Sulfate 2 gm/ Premix 50 mls @ 25 mls/hr 06/18/18 19:13 06/18/18 19: 30 IV 06/18/18 21:12 25 mls/hr ONETIME ONE Administration Metoprolol Tartrate 12.5 mg 06/18/18 21:12 06/18/18 21:35 Lopressor PO 06/18/18 21:13 12.5 mg ONETIME ONE Administration - Re-Assessments/Exams Free Text/Narrative Re-Assessment/Exam: On examination patient is alert and oriented 3. O2 sats 97% on 8 L of O2 via nasal cannula. A liters per minute is typical for the patient since he has interstitial lung disease. He's been complaining some increasing cough and shortness of breath. Prior to arrival patient patient experienced a episode of atrial fibrillation the rate of 170. He has a Holter monitor in place and thus the [facility] in [place] called him and told the patient to go to the ED immediately. Last night states he slept wrong on his neck and has some increasing pain to the left lateral aspect of his neck worse with movement. He' s also has some pain to the left arm. Upon arrival to the ED he only complains of shortness of breath. This is chronic unchanged as of right now. Heart rates is 97 sinus tachycardia with no acute ST changes. His HI interval and QTC are normal. During transport EMS noted the patient was in sinus rhythm with intermittent PACs. Patient is a poorly controlled diabetic. History of A. fib currently on Eliquis. He was diagnosed with influenza this past May. Transferred to [place] for further treatment. He did have episode of atrial fibrillation at that time in the 160s. He was placed on metoprolol XL 25 mg one tab every day. Initial labs and studies include: CBC, chem 14, coag studies, magnesium level, mycoplasma, proBNP, troponin, chest x-ray two-view, and CRP. EKG sinus tachycardia at a rate of 97 with normal HI and QTc. No acute ST changes noted. Reviewed with Dr Simmons. Chest x-ray reviewed. Appears to be improved from previous CXR. Dr. simmons reviewed the x-ray and suggested radiologists interpretation. I will have radiologists review. Labs reviewed: WBC 12.9, hemoglobin 13.0, blood count 305, neutrophil percentage 79 with no left shift. Sodium and potassium normal. CO2 30. HCG 15.8. Creatinine 1.3. Glucose elevated to 18. Magnesium low at 1.3. Troponin normal. CRP 1.1. ProBNP is 282. Mycoplasma is negative. I have ordered magnesium 2 g IV. I will order a second troponin to trend. I have offered to admit the patient for observation to trend troponins and monitor for atrial fibrillation. Patient would like to be discharged home. Patient will require increase of Toprol-XL 25 mg daily. Chest x-ray final impression: Increased lung markings bleeding to represent fairly severe fibrosis. Nothing acute is definitely appreciated. 06/18/18 20:48 second troponin came back negative. 2057 vital signs blood pressure 127/70, heart rate 80, SPO2 97% on 8 L nasal cannula. Patient states he has no complaints. I will have nursing staff get the patient up and ambulate and see how he tolerates. We discussed increasing his toprol xl to 50 mg everyday or allow patient to speak with cardiologists. We have elected to increase his metoprolol. I have discussed this with Dr. Tena and he agrees with increasing. I will give the patient lopressor 12.5mg this evening and have him start increasing the toprol xl in the a.m. Per nursing staff patients heart rate increased to 110 with standing. He is very short of breath with ambulation which is not unusual for the patient. Patient is ready be discharged home. Return precautions were discussed with the patient and family. They voiced their understanding. They had no further questions or concerns. Departure - Departure Time of Disposition: 21:13 Disposition: Home, Self-Care 01 Condition: Good Clinical Impression: Paroxysmal A-fib, Interstitial lung disease, Pulmonary fibrosis Dyspnea Qualifiers: Dyspnea type: shortness of breath Qualified Code(s): R06.02 - Shortness of breath Instructions: Shortness of Breath, Adult, Dvpi-ap-Mncm, Holter Monitoring, Atrial Fibrillation Referrals: PCP,None [Primary Care Provider] - Forms: ED Department Discharge Additional Instructions: As discussed we will increase her Toprol-XL from 25 mg to 50 mg every day. Please monitor your blood pressure daily. Follow the instructions as listed below. I will contact your green marketing specialist tomorrow or the following day and provide details what took place. He had no episodes of A. fib while in the emergency room. U troponin levels which are enzymes released by the heart when stressed were negative as well. Chest x-ray did not reveal any findings concerning for pneumonia. Your magnesium was low at 1.3. Urine received 2 g of magnesium while in the emergency department. He will require magnesium level recheck in next 1-2 days. I suggest make an appointment to be evaluated by PCP in the next 2-3 days. Please return back to the ED if you develop any new or worsening symptoms as discussed.
[2018-06-18] MEDS ORDERED: Magnesium Sulfate/Water 2 GM in Premix Bag 1 BAG IV ONE (19:13)
--- NOTE | 2018-06-18 19:56 | CR ---
Chest: 2 views of the chest were obtained. Comparison: Prior chest CT of 05/12/18 and chest x-ray of 05/12/18. Diffuse increased lung markings are seen. Findings are fairly stable from prior exam presumably due to fairly severe fibrosis. Heart is at the upper limits of normal for AP technique. Tortuous thoracic aorta is seen. Bony structures appear within normal limits for the patient's age. Impression: 1. Increased lung markings believed to represent fairly severe fibrosis. Nothing acute is definitely appreciated. Diagnostic code #3
[2018-06-18] MEDS ORDERED: Metoprolol Tartrate 25 MG Tab PO ONE (21:12)
== END 2018-06-18 21:50 | disposition home or self-care (01) ==
LOC: JD.ED 17:01
DX: I48.0 Paroxysmal atrial fibrillation (principal); J84.10 Pulmonary fibrosis, unspecified; J84.9 Interstitial pulmonary disease, unspecified; E11.9 Type 2 diabetes mellitus without complications; Z87.891 Personal history of nicotine dependence
CPT/HCPCS: 36415; 71046; 80053; 82962; 83735; 83880; 84484; 85007; 85027; 85610; 85730; 86140; 86738; 96365; 96366; 99285; A9270; J3475; 93010; 99284

== ENCOUNTER 2019-01-10 16:25 | Inpatient (IN) | payer MEDICARE, OTHER ==
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
[2019-01-10] MEDS ORDERED: Acetaminophen 325 MG Tab PO ONE (17:27)
[2019-01-10] MEDS ORDERED: Levofloxacin/Dextrose 5%-Water 750 MG in Premix Bag 1 BAG IV ONE ×2 (18:09→18:44)
[2019-01-10] MEDS ORDERED: Piperacillin/Tazobactam 4.5 GM in Sodium Chloride 0.9% 100 ML IV ONE (18:13)
[2019-01-10] MEDS ORDERED: Sodium Chloride 0.9% 1,000 ML IV SCH (18:15)
--- NOTE | 2019-01-10 18:18 | PCM.HP.2 ---
H&P History of Present Illness - General Date of Service: 01/10/19 - History of Present Illness Initial Comments - Free Text/Narative: This is a 78 year old male with past medical history of interstitial lung disease, COPD and CAD who came to the ED brought in by family members for worsening shortness of breath. As per patient he has been having worsening shortness of breath for a couple of weeks associated with MOYA, orthopnea, exercise intolerance as well as intermittent dry cough that has been steadily getting worse. This morning patient continued to feel short of breath while he was taking a shower, the shortness of breath was so bad he had to go back and lay down in bed. He also associates the symptoms to fevers, chills, Denies night sweats, weight gain, puffy eyes, nausea, vomiting, diarrhea, constipation, sick contacts He has been using his breathing treatments at the same frequency. Last Monday weighed 302 and this morning 299. - Related Data Allergies/Adverse Reactions: Allergies Allergy/AdvReac Type Severity Reaction Status Date / Time No Known Allergies Allergy Verified 01/10/19 16:40 Home Medications: Home Meds Albuterol Sulfate 1 dose INH TID 05/20/17 [History] Albuterol Sulfate [Proventil Hfa] 2 puff INH Q6HR PRN 05/20/17 [History] Aspirin [Adult Low Dose Aspirin EC] 81 mg PO DAILY 05/20/17 [History] Insulin Isophane NPH, Human [NovoLIN N] 48 units SUBCUT DAILY 05/20/17 [History] Multivitamin with Minerals [Multivitamins with Minerals] 1 tab PO DAILY [History] Solomon-3/DHA/Epa/Fish Oil [Solomon-3 Fish Oil 1,200 MG Sfgl] 2,000 mg PO DAILY 12/28 [History] Pantoprazole Sodium [Protonix] 40 mg PO DAILY 05/20/17 [History] Potassium Chloride 20 meq PO BID 05/20/17 [History] Prednisone [IMW: predniSONE] 25 mg PO DAILY 05/20/17 [History] Simvastatin [Zocor] 40 mg PO DAILY 05/20/17 [History] Glucosamine/D3/Boswellia Nalini [Osteo Bi-Flex Caplet] 2 tab PO DAILY 05/12/18 [ History] Budesonide [Pulmicort] 1 inh NEB BID 06/18/18 [History] Ergocalciferol (Vitamin D2) [Vitamin D2] 1 tab PO DAILY 06/18/18 [History] Furosemide 40 mg PO DAILY 06/18/18 [History] Glimepiride 4 mg PO BID 06/18/18 [History] Metoprolol Succinate [Toprol XL] 25 mg PO DAILY 06/18/18 [History] Sulfamethoxazole/Trimethoprim [Bactrim Ds Tablet] 1 tab PO MOWEFR 06/18/18 [ History] Umeclidinium Brm/Vilanterol Tr [Anoro Ellipta 62.5-25 MCG] 1 puff INH DAILY 10/29 [History] metFORMIN HCl [Metformin HCl] 1,000 mg PO BID 06/18/18 [History] Apixaban [Eliquis] 5 mg PO BID 09/26/18 [History] Nitroglycerin [Nitrostat] 0.4 mg SL ASDIRECTED PRN #4 tab.subl 10/17/18 [Rx] Past Medical History Cardiovascular History: Reports: Afib, Heart Failure, High Cholesterol, Hypertension, Other (See Below) (Patient states he does not have sleep apnea.) Respiratory History: Reports: COPD, Interstitial Lung Disease, Pulmonary Fibrosis (Patient has pulmonary fibrosis he is on 8 L of oxygen at all times.), Other (See Below) Other Respiratory History: rheumatoid lung, sees Dr. Harmon and Dr. Madsen in [facility] Musculoskeletal History: Reports: Other (See Below) Other Musculoskeletal History: rt hand with silicone joint and tendon repair Psychiatric History: Reports: Depression Endocrine/Metabolic History: Reports: Diabetes, Type II (Uses insulin for diabetes control.), Obesity/BMI 30+ Social & Family History - Family History Family Medical History: Noncontributory - Tobacco Use Smoking Status *Q: Former Smoker Used Tobacco, but Quit: Yes Month/Year Tobacco Last Used: 1985 - Caffeine Use Caffeine Use: Reports: Coffee - Recreational Drug Use Recreational Drug Use: No - Living Situation & Occupation Living situation: Reports: , with Spouse Occupation: Retired H&P Review of Systems - Review of Systems: Review Of Systems: See Below General: Reports: Fever, Chills, Malaise, Fatigue, Weight Loss. Denies: Night Sweats, Diaphoresis, Decreased Appetite HEENT: Denies: Dysphasia, Headaches, Post Nasal Drip, Sinus Congestion, Sore Throat, Visual Changes Pulmonary: Reports: Shortness of Breath, Cough. Denies: Wheezing, Pleuritic Chest Pain, Sputum, Hemoptysis Cardiovascular: Reports: Dyspnea on Exertion, Orthopnea. Denies: Chest Pain, Palpitations, PND, Edema, Lightheadedness, Syncope Gastrointestinal: Denies: Abdominal Pain, Anorexia, Black Stool, Bloody Stool, Constipation, Diarrhea, Decreased Appetite, Difficulty Swallowing, Distension, Flatus, Hematemesis, Hematochezia Genitourinary: Denies: Dysuria, Frequency, Burning, Pain, Urgency Musculoskeletal: Denies: Joint Pain, Joint Swelling, Muscle Pain, Muscle Stiffness Skin: Denies: Cyanosis, Jaundice, Mottled, Pallor, Diaphoresis, Dryness, Bruising, Pruritis, Rash, Erythema Psychiatric: Denies: Confusion, Depression, Mood Lability, Anxiety Neurological: Denies: Confusion, Dizziness, Headache, Numbness Exam - Exam Exam: See Below - Vital Signs Vital Signs: Last Vital Signs Temp 37.9 C 01/10/19 16:28 Pulse 113 H 01/10/19 16:28 Resp 25 H 01/10/19 16:28 BP 122/63 01/10/19 16:28 Pulse Ox 99 01/10/19 17:45 Weight: 135.171 kg - Exam Quality Assessment: Supplemental Oxygen, Other (CONFOUNDED BY BODY HABITUS) General: Alert, Oriented, Cooperative, Moderate Distress HEENT: Conjunctiva Clear, EACs Clear, Mucosa Moist & [place], Nares Patent, Normal Nasal Septum Neck: Supple Lungs: Decreased Breath Sounds, Crackles. No: Rales, Rhonchi, Rub, Stridor, Wheezing Cardiovascular: Regular Rate, Regular Rhythm. No: Systolic Murmur, Diastolic Murmur, Rubs GI/Abdominal Exam: Soft, Non-Tender, No Distention. No: Guarding, Rigid, Rebound Back Exam: Normal Inspection. No: CVA Tenderness (L), CVA Tenderness (R) Extremities: Normal Inspection, Pedal Edema, Other (1+ edema up to knees BL) Skin: Warm, Dry Neuro Extensive - Mental Status: Alert, Normal Mood/Affect, Normal Cognition Psychiatric: Alert, Normal Affect, Normal Mood - Patient Data Lab Results Last 24 hrs: Laboratory Results - last 24 hr 10/01/10/19 01/10/19 Range/Units 17:08 17:13 17:13 PT 11.8 (9.7-12.0) SECONDS INR 1.09 APTT 24 (22-31) SECONDS D-Dimer, Quantitative 0.59 H (0.19-0.50) mg/L Puncture Site Lt radial ABG pH 7.48 H (7.35-7.45) ABG pCO2 36.2 (35.0-45.0) mmHg ABG pO2 75.0 L (80.0-100.0) mmHg ABG HCO3 26.6 H (22.0-26.0) meq/L ABG O2 Saturation 94.1 L (96.0-97.0) % ABG Base Excess 3.4 H (-2-2.0) Ross Test Positive A-a Gradient 452 mmHg O2 Delivery Device Nonrebreather Oxygen Flow Rate 15.0 FiO2 90.00 (21.00-100.00) % Lactic Acid 4.6 H (0.4-2.0) mmol/L Result Diagrams: 01/10/19 17:13 01/10/19 17:13 - Problem List (1) Sepsis SNOMED Code(s): 04907077 ICD Code: A41.9 - SEPSIS, UNSPECIFIED ORGANISM Status: Acute Current Visit: Yes (2) Hypertension SNOMED Code(s): 80513511 ICD Code: I10 - ESSENTIAL (PRIMARY) HYPERTENSION Status: Acute Current Visit: Yes (3) COPD (chronic obstructive pulmonary disease) SNOMED Code(s): 80890512 ICD Code: J44.9 - CHRONIC OBSTRUCTIVE PULMONARY DISEASE, UNSPECIFIED Status : Acute Current Visit: Yes (4) CAD (coronary artery disease) SNOMED Code(s): 03063332 ICD Code: I25.10 - ATHSCL HEART DISEASE OF [place] CORONARY ARTERY W/O ANG PCTRS Status: Acute Current Visit: Yes (5) S/P angioplasty with stent SNOMED Code(s): 758484463, 111496692 ICD Code: Z95.820 - PERIPHERAL VASCULAR ANGIOPLASTY STATUS W IMPLANTS AND GRAFTS Status: Acute Current Visit: Yes (6) Diabetes mellitus SNOMED Code(s): 63616746 ICD Code: E11.9 - TYPE 2 DIABETES MELLITUS WITHOUT COMPLICATIONS Status: Acute Current Visit: Yes (7) Chronic steroid use SNOMED Code(s): 686431153 ICD Code: YIU8174 - Status: Acute Current Visit: Yes (8) Chronic hypoxemic respiratory failure SNOMED Code(s): 543526895 ICD Code: J96.11 - CHRONIC RESPIRATORY FAILURE WITH HYPOXIA Status: Acute Current Visit: Yes (9) Acute on chronic respiratory failure with hypoxemia SNOMED Code(s): 37465654662321972 ICD Code: J96.21 - ACUTE AND CHRONIC RESPIRATORY FAILURE WITH HYPOXIA Status: Acute Current Visit: Yes (10) Dyspnea SNOMED Code(s): 889997136 ICD Code: R06.00 - DYSPNEA, UNSPECIFIED Status: Acute Current Visit: No Qualifiers: Dyspnea type: shortness of breath Qualified Code(s): R06.02 - Shortness of breath; R06.00 - Dyspnea, unspecified; R06.01 - Orthopnea (11) Edema of left lower extremity SNOMED Code(s): 194927341, 781542835 ICD Code: R60.0 - LOCALIZED EDEMA Status: Acute Current Visit: No (12) Interstitial lung disease SNOMED Code(s): 743688872 ICD Code: J84.9 - INTERSTITIAL PULMONARY DISEASE, UNSPECIFIED Status: Acute Current Visit: No (13) Paroxysmal A-fib SNOMED Code(s): 432120694 ICD Code: I48.0 - PAROXYSMAL ATRIAL FIBRILLATION Status: Acute Current Visit: No (14) Pulmonary fibrosis SNOMED Code(s): 69841466 ICD Code: J84.10 - PULMONARY FIBROSIS, UNSPECIFIED Status: Acute Current Visit: No (15) Chest pain SNOMED Code(s): 74609789 ICD Code: R07.9 - CHEST PAIN, UNSPECIFIED Status: Acute Current Visit: No Qualifiers: Chest pain type: precordial pain Qualified Code(s): R07.2 - Precordial pain Problem List Initiated/Reviewed/Updated: Yes Assessment/Plan Comment:: Sepsis 2/2 CAP Worsening shortness of breath + fever + chills + elevated lactic acid Needs pseudomona coverage as well as MRSA due to underlying lung disease Chronic steroid user, will start stress dose steroids PLAN - Start Vancomycin, Levaquin and Zosyn - Procalcitonin ordered - Influenza swab - RT evaluation and treat - Scheduled DuoNebs q4h - Scheduled Pulmicort BID - Scheduled Mucomyst q6h - Solumedrol 40mg Iv q8h - Induced sputum sample Acute on chronic hypoxemic respiratory failure in the setting of interstitial lung disease and COPD with pneumonia Patient with acutely worsening shortness of breath Home O2 at 8L via [place] 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, 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, 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 On Scheduled DuoNebs and Pulmicort at home On Anoro Ellipta Needs PLAN - Treat PNA - RT evaluation and treat - Continue oxygen supplementation via non-rebreather - Repeat ABG's in the AM - Hold home inhalers Ischemic heart failure, unknown EF On Furosemide, isosorbide and metoprolol at home BL LE edema on physical exam Echocardiogram done 11/2018 PLAN - Lasix 60mg IV BID for now - Strict intake and output - Daily weights - Request records Chronic steroid use Hold home PO steroids Start stress dose steroids PLAN - Solumedrol 40mg IV q8h - Glucose control as per diabetes Chest pain in the setting of CAD s/p stent placement Home management with clopidogrel and isosorbide mononitrate Troponin on admission negative PLAN - Trend troponin q4h x 3 - Repeat EKG in AM - Admit with telemetry - Continue clopidogrel and isosorbide at home dose - PRN NTG Paroxysmal A-fib, CHADsVASC-5 on Eliquis Rate controlled On Eliquis PLAN - Continue Eliquis Diabetes mellitus, unknown HbA1c On NPH 28u BID, metformin and glimepiride at home Home trend is unknown PLAN - New HbA1c - Accuchecks TID AC and HS - High sensitivity sliding scale - Hypoglycemia protocol - Diabetic diet - 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 - Reduce home insulin dose to 20 BID - Hold glimepiride and metformin Hypertension BP on admission 122/63 Home management with metoprolol PLAN - Continue metoprolol at 50% dose - Evaluate echocardiogram and if patient has decreased EF he would benefit from ANGELINE or ARB - Will monitor BP - PRN Hydralazine 10mg IV for BP > 200/100 Dyslipidemia No acute issues Home management with simvastatin PLAN - Optimize statin due to CAD with rosuvastatin 10mg Polypharmacy Will reconcile according to BEERs criteria prior to discharge PROPHYLAXIS: DVT- eliquis and clopidogrel GI- home pantoprazole CODE STATUS: DNI DISPOSITION: Patient will be admitted to the ICU for close monitorization of hemodynamics as well as IV antibiotics.
[2019-01-10] MEDS ORDERED: Vancomycin 2 GM in Sodium Chloride 0.9% 500 ML IV ONE ×2 (18:19→22:00)
[2019-01-10] MEDS ORDERED: Acetaminophen 325 MG Tab PO PRN (19:24)
[2019-01-10] MEDS ORDERED: 50% Dextrose in Water 50 ML Syringe IVPUSH PRN (19:24)
[2019-01-10] MEDS ORDERED: Morphine 2 MG/ML Syringe IVPUSH PRN (19:24)
[2019-01-10] MEDS ORDERED: Ondansetron 4 MG/2 ML SDV IV PRN (19:24)
[2019-01-10] MEDS ORDERED: Ondansetron 4 MG Tab.DIS PO PRN (19:24)
[2019-01-10] MEDS ORDERED: Ketorolac 15 MG/ML SDV IM PRN (19:24)
[2019-01-10] MEDS ORDERED: Lactated Ringers 1,000 ML IV SCH ×2 (19:30→22:45)
--- NOTE | 2019-01-10 19:47 | CT ---
CT chest Technique: Multiple axial sections through the chest were obtained. Intravenous contrast was not utilized. Comparison: Prior chest x-ray performed earlier on the same day (5:25 PM) and prior chest CT study of 05/12/18. Findings: Severe pulmonary fibrosis is seen within both lungs. Findings are without definite change from previous chest CT exam. Heart size is within normal limits. Visualized upper abdominal structures shows no discrete abnormality. Coronary artery calcification is seen. Aorta shows atherosclerotic change without aneurysm. Scattered mediastinal lymph nodes are seen which are felt to be stable. Bone window settings were reviewed which shows degenerative change within the spine. No acute osseous abnormality is appreciated. Impression: 1. Severe pulmonary fibrosis. Findings are fairly similar to previous chest CT study. 2. Other findings as noted above also felt to be stable. 3. Nothing acute is definitely appreciated. Diagnostic code #3
[2019-01-10 19:55] LABS: HEMOGLOBIN A1C 7.7 % (4.50-6.20)
[2019-01-10] MEDS ORDERED: INSULIN ISOPHANE NPH HUMAN SUBCUT SCH (21:00)
[2019-01-10] MEDS: Albuterol/Ipratropium 3.0-0.5 MG/3 ML Neb Soln NEB SCH (21:21)
[2019-01-10] MEDS: Acetylcysteine 20% 200 MG/ML 4 ML Nebulizer Soln SDV NEB SCH (21:21)
[2019-01-10] MEDS ORDERED: Vancomycin 1 GM AdvVial ONE (21:40)
[2019-01-10] MEDS ORDERED: Sodium Chloride 0.9% 500 ML ONE (21:42)
[2019-01-10] MEDS: Hydrocortisone Sodium Succinate 100 MG/2 ML SDV IVPUSH SCH (21:47)
[2019-01-10] MEDS: Benzonatate 100 MG Cap PO SCH (21:52)
[2019-01-10] MEDS: guaiFENesin/Dextromethorphan 100-10 MG/5 ML Soln 5 ML Cup PO SCH (21:56)
[2019-01-10] MEDS ORDERED: Magnesium Sulfate/Water 4 GM in Premix Bag 1 BAG IV ONE (22:28)
[2019-01-11] MEDS ORDERED: Levofloxacin/Dextrose 5%-Water 750 MG in Premix Bag 1 BAG IV SCH ×2
[2019-01-11] MEDS: Apixaban 5 MG Tab PO SCH ×3 (00:38→20:38)
[2019-01-11] MEDS: guaiFENesin/Dextromethorphan 100-10 MG/5 ML Soln 5 ML Cup PO SCH ×6 (00:38→20:38)
[2019-01-11] MEDS: Insulin Isophane NPH, Human 100 Units/ML 10 ML Vial SUBCUT SCH ×2 (00:41→09:00)
[2019-01-11] MEDS: Albuterol/Ipratropium 3.0-0.5 MG/3 ML Neb Soln NEB SCH ×6 (01:42→21:39)
[2019-01-11] MEDS: Budesonide 0.25 MG/2 ML Neb Susp NEB SCH ×3 (01:43→21:44)
[2019-01-11] MEDS: Piperacillin/Tazobactam 4.5 GM in Sodium Chloride 0.9% 100 ML IV SCH ×3 (02:00→17:14)
[2019-01-11] MEDS: Lactated Ringers 1,000 ML IV SCH ×3 (02:38→11:08)
[2019-01-11] MEDS: Hydrocortisone Sodium Succinate 100 MG/2 ML SDV IVPUSH SCH ×3 (04:07→20:39)
[2019-01-11] MEDS: Acetylcysteine 20% 200 MG/ML 4 ML Nebulizer Soln SDV NEB SCH ×4 (05:41→21:39)
[2019-01-11] MEDS: Insulin Lispro 100 Units/ML 3 ML Vial SUBCUT SCH ×2 (06:41→17:23)
--- NOTE | 2019-01-11 07:07 | CR ---
Chest: Portable view of the chest was obtained. Comparison: Our chest x-ray of 10/17/18. Diffuse increased lung markings are seen. Findings remain fairly stable from prior exam. Heart size within normal limits for portable technique. Mild tortuosity of the thoracic aorta is seen. Bony structures are grossly intact. Impression: 1. Findings as described above. Nothing acute is appreciated when compared to prior chest x-ray. Diagnostic code #2
[2019-01-11] MEDS ORDERED: INSULIN ISOPHANE NPH HUMAN 100 UNIT/ML SUBCUT SCH (08:45)
[2019-01-11] MEDS: Multivitamins with Minerals/Folic Acid/Lutein/Zeaxanth Tab PO SCH (08:52)
[2019-01-11] MEDS: Cholecalciferol (Vitamin D3) 5,000 UNIT Tab PO SCH (08:52)
[2019-01-11] MEDS: Benzonatate 100 MG Cap PO SCH ×3 (08:52→20:39)
[2019-01-11] MEDS: Fish Oil/Omega-3 Fatty Acids 1 Gm Cap PO SCH (08:52)
[2019-01-11] MEDS: Metoprolol Succinate 25 MG Tab.ER PO SCH (08:53)
[2019-01-11] MEDS ORDERED: GLUCOSAMINE PO SCH (09:00)
[2019-01-11] MEDS ORDERED: D3 PO SCH (09:00)
[2019-01-11] MEDS ORDERED: [UNRECOGNIZED DRUG - OTHER] PO SCH (09:00)
[2019-01-11] MEDS ORDERED: Pantoprazole 40 MG Tab.CR PO SCH (09:00)
[2019-01-11] MEDS ORDERED: BOSWELLIA SERRA T PO SCH (09:00)
[2019-01-11] MEDS ORDERED: Aspirin 81 MG Tab.EC PO SCH (09:00)
[2019-01-11] MEDS ORDERED: Magnesium Sulfate/Water 4 GM in Premix Bag 1 BAG IV ONE (09:30)
--- NOTE | 2019-01-11 16:42 | PCM.PN ---
- General Info Date of Service: 01/11/19 Subjective Update: Hard time sleeping BM day before yesterday Tolerating diet Ambulated to door but got really short of breath - Patient Data Vitals - Most Recent: Last Vital Signs Temp 36.9 C 01/11/19 16:00 Pulse 85 01/11/19 16:00 Resp 24 H 01/11/19 16:00 BP 135/78 01/11/19 16:00 Pulse Ox 94 L 01/11/19 16:00 Weight - Most Recent: 139.706 kg I&O - Last 24 Hours: Intake & Output 01/11/19 01/11/19 01/11/19 06:59 14:59 22:59 Intake Total 3082 320 2100 Output Total 1400 Balance 7864 999 2730 - Exam Quality Assessment: Supplemental Oxygen, DVT Prophylaxis General: Alert, Oriented, Cooperative, No Acute Distress HEENT: Pupils Equal, Pupils Reactive Neck: Supple, Trachea Midline Lungs: Decreased Breath Sounds, Crackles Cardiovascular: Regular Rate, Regular Rhythm. No: Murmurs, Gallops, Rubs GI/Abdominal Exam: Normal Bowel Sounds, Soft, Non-Tender Back Exam: Normal Inspection Extremities: Normal Inspection, Normal Capillary Refill, Pedal Edema Skin: Warm Neurological: No New Focal Deficit Psy/Mental Status: Alert, Normal Affect, Normal Mood - Problem List & Annotations (1) Sepsis SNOMED Code(s): 07157278 Code(s): A41.9 - SEPSIS, UNSPECIFIED ORGANISM Status: Acute Current Visit : Yes (2) Hypertension SNOMED Code(s): 41380334 Code(s): I10 - ESSENTIAL (PRIMARY) HYPERTENSION Status: Acute Current Visit: Yes (3) COPD (chronic obstructive pulmonary disease) SNOMED Code(s): 98992368 Code(s): J44.9 - CHRONIC OBSTRUCTIVE PULMONARY DISEASE, UNSPECIFIED Status : Acute Current Visit: Yes (4) CAD (coronary artery disease) SNOMED Code(s): 52018401 Code(s): I25.10 - ATHSCL HEART DISEASE OF [place] CORONARY ARTERY W/O ANG PCTRS Status: Acute Current Visit: Yes (5) S/P angioplasty with stent SNOMED Code(s): 191827613, 505641619 Code(s): Z95.820 - PERIPHERAL VASCULAR ANGIOPLASTY STATUS W IMPLANTS AND GRAFTS Status: Acute Current Visit: Yes (6) Diabetes mellitus SNOMED Code(s): 72216189 Code(s): E11.9 - TYPE 2 DIABETES MELLITUS WITHOUT COMPLICATIONS Status: Acute Current Visit: Yes (7) Chronic steroid use SNOMED Code(s): 388920452 Code(s): KWZ8443 - Status: Acute Current Visit: Yes (8) Chronic hypoxemic respiratory failure SNOMED Code(s): 553948759 Code(s): J96.11 - CHRONIC RESPIRATORY FAILURE WITH HYPOXIA Status: Acute Current Visit: Yes (9) Acute on chronic respiratory failure with hypoxemia SNOMED Code(s): 17631627886881871 Code(s): J96.21 - ACUTE AND CHRONIC RESPIRATORY FAILURE WITH HYPOXIA Status : Acute Current Visit: Yes (10) Dyspnea SNOMED Code(s): 305398692 Code(s): R06.00 - DYSPNEA, UNSPECIFIED Status: Acute Current Visit: No Qualifiers: Dyspnea type: shortness of breath Qualified Code(s): R06.02 - Shortness of breath; R06.00 - Dyspnea, unspecified; R06.01 - Orthopnea (11) Edema of left lower extremity SNOMED Code(s): 352123720, 093052287 Code(s): R60.0 - LOCALIZED EDEMA Status: Acute Current Visit: No (12) Interstitial lung disease SNOMED Code(s): 067573614 Code(s): J84.9 - INTERSTITIAL PULMONARY DISEASE, UNSPECIFIED Status: Acute Current Visit: No (13) Paroxysmal A-fib SNOMED Code(s): 862891942 Code(s): I48.0 - PAROXYSMAL ATRIAL FIBRILLATION Status: Acute Current Visit: No (14) Pulmonary fibrosis SNOMED Code(s): 37168909 Code(s): J84.10 - PULMONARY FIBROSIS, UNSPECIFIED Status: Acute Current Visit: No (15) Chest pain SNOMED Code(s): 13543617 Code(s): R07.9 - CHEST PAIN, UNSPECIFIED Status: Acute Current Visit: No Qualifiers: Chest pain type: precordial pain Qualified Code(s): R07.2 - Precordial pain (16) Hypomagnesemia SNOMED Code(s): 575546213 Code(s): E83.42 - HYPOMAGNESEMIA Status: Acute Current Visit: Yes - Problem List Review Problem List Initiated/Reviewed/Updated: Yes - Plan Plan:: Sepsis 2/2 CAP Worsening shortness of breath + fever + chills + elevated lactic acid Needs pseudomona coverage as well as MRSA due to underlying lung disease Chronic steroid user, will start stress dose steroids Influenza swab negative PLAN - Continue Vancomycin, Levaquin and Zosyn - RT evaluation and treat - Scheduled DuoNebs q4h - Scheduled Pulmicort BID - Scheduled Mucomyst q6h - Solumedrol 40mg Iv q8h - Induced sputum sample Acute on chronic hypoxemic respiratory failure in the setting of interstitial lung disease and COPD with pneumonia Patient with acutely worsening shortness of breath Home O2 at 8L via [place] 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, 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, 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 Scheduled DuoNebs and Pulmicort at home On Anoro Ellipta CT with extensive and disseminated pulmonary fibrosis Back at baseline O2 requirements PLAN - Treat PNA - RT evaluation and treat - Continue oxygen supplementation via non-rebreather - Repeat ABG's in the AM - Hold home inhalers Ischemic heart failure, unknown EF On Furosemide, isosorbide and metoprolol at home BL LE edema on physical exam Echocardiogram done 11/2018 PLAN - Lasix 60mg IV BID for now - Strict intake and output - Daily weights - Request records Chronic steroid use Hold home PO steroids Start stress dose steroids PLAN - Solumedrol 40mg IV q8h - Glucose control as per diabetes Chest pain in the setting of CAD s/p stent placement Home management with clopidogrel and isosorbide mononitrate Troponin on admission negative PLAN - Trend troponin q4h x 3 - Repeat EKG in AM - Admit with telemetry - Continue clopidogrel and isosorbide at home dose - PRN NTG Paroxysmal A-fib, CHADsVASC-5 on Eliquis Rate controlled On Eliquis PLAN - Continue Eliquis Hypomagnesemia No changes on telemetry PLAN - Replace with MgSO4 4g Diabetes mellitus, unknown HbA1c On NPH 28u BID, metformin and glimepiride at home Home trend is unknown PLAN - New HbA1c - Accuchecks TID AC and HS - High sensitivity sliding scale - Hypoglycemia protocol - Diabetic diet - sales representative education courses - Reduce home insulin dose to 20 BID - Hold glimepiride and metformin Hypertension BP on admission 122/63 Home management with metoprolol PLAN - Continue metoprolol at 50% dose - Evaluate echocardiogram and if patient has decreased EF he would benefit from ANGELINE or ARB - Will monitor BP - PRN Hydralazine 10mg IV for BP > 200/100 Dyslipidemia No acute issues Home management with simvastatin PLAN - Optimize statin due to CAD with rosuvastatin 10mg Polypharmacy Will reconcile according to BEERs criteria prior to discharge PROPHYLAXIS: DVT- eliquis and clopidogrel GI- home pantoprazole CODE STATUS: DNI DISPOSITION: Patient will be admitted to the ICU for close monitorization of hemodynamics as well as IV antibiotics.
[2019-01-11] MEDS: INSULIN ISOPHANE NPH HUMAN 100 UNIT/ML SUBCUT SCH (17:25)
[2019-01-11] MEDS ORDERED: Vancomycin 1 GM SDV ONE (22:30)
[2019-01-11] MEDS: Vancomycin 2 GM in Sodium Chloride 0.9% 500 ML IV SCH (22:35)
[2019-01-12] MEDS: guaiFENesin/Dextromethorphan 100-10 MG/5 ML Soln 5 ML Cup PO SCH ×7 (00:11→23:28)
[2019-01-12] MEDS: Piperacillin/Tazobactam 4.5 GM in Sodium Chloride 0.9% 100 ML IV SCH ×3 (02:17→18:05)
[2019-01-12] MEDS: Albuterol/Ipratropium 3.0-0.5 MG/3 ML Neb Soln NEB SCH ×6 (02:32→21:04)
[2019-01-12] MEDS: Hydrocortisone Sodium Succinate 100 MG/2 ML SDV IVPUSH SCH ×3 (04:16→20:21)
[2019-01-12] MEDS: Budesonide 0.25 MG/2 ML Neb Susp NEB SCH ×2 (06:24→21:04)
[2019-01-12] MEDS: Acetylcysteine 20% 200 MG/ML 4 ML Nebulizer Soln SDV NEB SCH ×4 (06:24→21:03)
[2019-01-12] MEDS: INSULIN ISOPHANE NPH HUMAN 100 UNIT/ML SUBCUT SCH ×2 (06:35→18:02)
[2019-01-12] MEDS: Insulin Lispro 100 Units/ML 3 ML Vial SUBCUT SCH ×2 (06:39→18:00)
[2019-01-12] MEDS ORDERED: Magnesium Sulfate/Water 2 GM in Premix Bag 1 BAG IV ONE (07:45)
[2019-01-12] MEDS ORDERED: Furosemide 100 MG/10 ML SDV IVPUSH ONE (07:49)
[2019-01-12] MEDS: Potassium Chloride 10 MEQ in Premix Bag 1 BAG IV SCH ×2 (09:29→10:51)
[2019-01-12] MEDS: Benzonatate 100 MG Cap PO SCH ×3 (09:35→20:19)
[2019-01-12] MEDS: Apixaban 5 MG Tab PO SCH ×2 (09:35→20:19)
[2019-01-12] MEDS: Fish Oil/Omega-3 Fatty Acids 1 Gm Cap PO SCH (09:35)
[2019-01-12] MEDS: Cholecalciferol (Vitamin D3) 5,000 UNIT Tab PO SCH (09:35)
[2019-01-12] MEDS: Metoprolol Succinate 25 MG Tab.ER PO SCH (09:35)
[2019-01-12] MEDS: Multivitamins with Minerals/Folic Acid/Lutein/Zeaxanth Tab PO SCH (09:35)
--- NOTE | 2019-01-12 11:40 | PCM.PN ---
- General Info Date of Service: 01/12/19 Subjective Update: Slept ok Back to baseline respiratory campa as per patient BM yesterday Tolerating diet Ambulating to and from restroom but this provokes severe fatigue - Patient Data Vitals - Most Recent: Last Vital Signs Temp 36.8 C 01/12/19 09:10 Pulse 90 01/12/19 09:35 Resp 22 H 01/12/19 04:00 BP 113/49 L 01/12/19 09:35 Pulse Ox 94 L 01/12/19 09:40 Weight - Most Recent: 143.335 kg I&O - Last 24 Hours: Intake & Output 01/11/19 01/12/19 01/12/19 22:59 06:59 14:59 Intake Total 3200 1520 740 Balance 3200 1520 740 - Exam Quality Assessment: Supplemental Oxygen, DVT Prophylaxis General: Alert, Oriented, No Acute Distress HEENT: Pupils Equal, Pupils Reactive Neck: Supple, Trachea Midline Lungs: Normal Respiratory Effort, Crackles. No: Rales, Rhonchi, Wheezing Cardiovascular: Regular Rate, Regular Rhythm. No: Murmurs, Gallops, Rubs GI/Abdominal Exam: Normal Bowel Sounds, Soft, Non-Tender Back Exam: Normal Inspection. No: CVA Tenderness (L), CVA Tenderness (R) Extremities: Normal Inspection, Normal Capillary Refill, Pedal Edema Neurological: No New Focal Deficit Psy/Mental Status: Alert, Normal Affect, Normal Mood - Problem List & Annotations (1) Sepsis SNOMED Code(s): 25426242 Code(s): A41.9 - SEPSIS, UNSPECIFIED ORGANISM Status: Acute Current Visit : Yes (2) Hypertension SNOMED Code(s): 96973354 Code(s): I10 - ESSENTIAL (PRIMARY) HYPERTENSION Status: Acute Current Visit: Yes (3) COPD (chronic obstructive pulmonary disease) SNOMED Code(s): 95349572 Code(s): J44.9 - CHRONIC OBSTRUCTIVE PULMONARY DISEASE, UNSPECIFIED Status : Acute Current Visit: Yes (4) CAD (coronary artery disease) SNOMED Code(s): 30129716 Code(s): I25.10 - ATHSCL HEART DISEASE OF [place] CORONARY ARTERY W/O ANG PCTRS Status: Acute Current Visit: Yes (5) S/P angioplasty with stent SNOMED Code(s): 797257539, 623729720 Code(s): Z95.820 - PERIPHERAL VASCULAR ANGIOPLASTY STATUS W IMPLANTS AND GRAFTS Status: Acute Current Visit: Yes (6) Diabetes mellitus SNOMED Code(s): 95512678 Code(s): E11.9 - TYPE 2 DIABETES MELLITUS WITHOUT COMPLICATIONS Status: Acute Current Visit: Yes (7) Chronic steroid use SNOMED Code(s): 861795962 Code(s): VHP8999 - Status: Acute Current Visit: Yes (8) Chronic hypoxemic respiratory failure SNOMED Code(s): 300657890 Code(s): J96.11 - CHRONIC RESPIRATORY FAILURE WITH HYPOXIA Status: Acute Current Visit: Yes (9) Acute on chronic respiratory failure with hypoxemia SNOMED Code(s): 86278307464293344 Code(s): J96.21 - ACUTE AND CHRONIC RESPIRATORY FAILURE WITH HYPOXIA Status : Acute Current Visit: Yes (10) Dyspnea SNOMED Code(s): 033833584 Code(s): R06.00 - DYSPNEA, UNSPECIFIED Status: Acute Current Visit: No Qualifiers: Dyspnea type: shortness of breath Qualified Code(s): R06.02 - Shortness of breath; R06.00 - Dyspnea, unspecified; R06.01 - Orthopnea (11) Edema of left lower extremity SNOMED Code(s): 414437114, 584422101 Code(s): R60.0 - LOCALIZED EDEMA Status: Acute Current Visit: No (12) Interstitial lung disease SNOMED Code(s): 324103609 Code(s): J84.9 - INTERSTITIAL PULMONARY DISEASE, UNSPECIFIED Status: Acute Current Visit: No (13) Paroxysmal A-fib SNOMED Code(s): 143563144 Code(s): I48.0 - PAROXYSMAL ATRIAL FIBRILLATION Status: Acute Current Visit: No (14) Pulmonary fibrosis SNOMED Code(s): 85894170 Code(s): J84.10 - PULMONARY FIBROSIS, UNSPECIFIED Status: Acute Current Visit: No (15) Chest pain SNOMED Code(s): 18142200 Code(s): R07.9 - CHEST PAIN, UNSPECIFIED Status: Acute Current Visit: No Qualifiers: Chest pain type: precordial pain Qualified Code(s): R07.2 - Precordial pain (16) Hypomagnesemia SNOMED Code(s): 612715456 Code(s): E83.42 - HYPOMAGNESEMIA Status: Acute Current Visit: Yes (17) Bacteremia due to Gram-positive bacteria SNOMED Code(s): 244162865820 Code(s): R78.81 - BACTEREMIA Status: Acute Current Visit: Yes - Problem List Review Problem List Initiated/Reviewed/Updated: Yes - Plan Plan:: Community Acquired PNA, improving Worsening shortness of breath + fever + chills + elevated lactic acid Needs pseudomona coverage as well as MRSA due to underlying lung disease Chronic steroid user, will start stress dose steroids Influenza swab negative PLAN - Continue Vancomycin, Levaquin and Zosyn day 3 - RT evaluation and treat - Scheduled DuoNebs q4h, Pulmicort BID, Mucomyst q6h and solumedrol 40mg Iv q8h - Induced sputum sample Bacteremia 2/2 gram + cocci in chains Culture from admission + No fever spikes Tmax 37.6 PLAN - Repeat cultures today, 48 h nagi - Echocardiogram on Monday Acute on chronic hypoxemic respiratory failure in the setting of interstitial lung disease and COPD with pneumonia Patient with acutely worsening shortness of breath Home O2 at 8L via [place] 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, 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, 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 Scheduled DuoNebs and Pulmicort at home On Anoro Ellipta CT with extensive and disseminated pulmonary fibrosis Back at baseline O2 requirements O2Sat trend: 88-93% on 8L NC PLAN - Treat PNA - RT evaluation and treat - Continue oxygen supplementation via NC - Hold home inhalers Ischemic heart failure, unknown EF On Furosemide, isosorbide and metoprolol at home BL LE edema on physical exam Echocardiogram done 11/2018 PLAN - Lasix 40mg PO BID - Strict intake and output - Daily weights - Request records Chronic steroid use Hold home PO steroids Start stress dose steroids PLAN - Solumedrol 40mg IV q8h - Glucose control as per diabetes Chest pain in the setting of CAD s/p stent placement Home management with clopidogrel and isosorbide mononitrate Troponin on admission negative PLAN - Trend troponin q4h x 3 - Repeat EKG in AM - Admit with telemetry - Continue clopidogrel and isosorbide at home dose - PRN NTG Paroxysmal A-fib, CHADsVASC-5 on Eliquis Rate controlled On Eliquis PLAN - Continue Eliquis Hypomagnesemia No changes on telemetry K and Pi normal PLAN - Replace with MgSO4 2g Diabetes mellitus, OgM8a-1.7% On NPH 28u BID, metformin and glimepiride at home Trend 158-292, req 6u on sliding scale PLAN - Accuchecks TID AC and HS - High sensitivity sliding scale - Hypoglycemia protocol - Diabetic 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 - Reduce home insulin dose to 20 BID - Hold glimepiride and metformin Hypertension MAP trend 66-77 Home management with metoprolol PLAN - Continue metoprolol at 50% dose - Evaluate echocardiogram and if patient has decreased EF he would benefit from ANGELINE or ARB - Will monitor BP - PRN Hydralazine 10mg IV for BP > 200/100 Dyslipidemia No acute issues Home management with simvastatin PLAN - Optimize statin due to CAD with rosuvastatin 10mg Polypharmacy Will reconcile according to BEERs criteria prior to discharge Sepsis on admission, resolved PROPHYLAXIS: DVT- eliquis and clopidogrel GI- home pantoprazole CODE STATUS: DNI DISPOSITION: Patient's respiratory status has greatly improved, transfer out of ICU today, reported bacteremia so patient will have to remain in hospital until Monday for echocardiogram.
[2019-01-12] MEDS: Nitroglycerin 0.4 MG Tab.SL SL PRN (12:31)
[2019-01-12] MEDS: Furosemide 40 MG Tab PO SCH ×2 (12:54→17:26)
[2019-01-12] MEDS ORDERED: Metoprolol Tartrate 5 MG/5 ML SDV IVPUSH ONE ×2 (15:16→15:17)
[2019-01-12] MEDS ORDERED: Metoprolol Tartrate 5 MG/5 ML SDV IVPUSH PRN (15:17)
[2019-01-12] MEDS ORDERED: Metoprolol Tartrate 5 MG/5 ML SDV ONE (15:20)
[2019-01-12] MEDS ORDERED: Diltiazem 50 MG/10 ML SDV IV ONE (15:56)
[2019-01-12] MEDS: Diltiazem 125 MG in Sodium Chloride 0.9% 100 ML IV SCH (16:46)
[2019-01-12] MEDS ORDERED: Levofloxacin/Dextrose 5%-Water 750 MG in Premix Bag 1 BAG IV SCH (21:00)
[2019-01-12] MEDS: Vancomycin 2 GM in Sodium Chloride 0.9% 500 ML IV SCH ×2 (23:29→23:36)
[2019-01-13] MEDS: Diltiazem 125 MG in Sodium Chloride 0.9% 100 ML IV SCH (00:07)
[2019-01-13] MEDS: Piperacillin/Tazobactam 4.5 GM in Sodium Chloride 0.9% 100 ML IV SCH ×3 (01:19→19:46)
[2019-01-13] MEDS: Albuterol/Ipratropium 3.0-0.5 MG/3 ML Neb Soln NEB SCH ×6 (01:34→21:13)
[2019-01-13] MEDS: Nitroglycerin 0.4 MG Tab.SL SL PRN (02:00)
[2019-01-13] MEDS: guaiFENesin/Dextromethorphan 100-10 MG/5 ML Soln 5 ML Cup PO SCH ×6 (03:58→23:55)
[2019-01-13] MEDS: Hydrocortisone Sodium Succinate 100 MG/2 ML SDV IVPUSH SCH ×3 (03:59→20:06)
[2019-01-13] MEDS: Acetylcysteine 20% 200 MG/ML 4 ML Nebulizer Soln SDV NEB SCH ×4 (06:16→21:13)
[2019-01-13] MEDS: Budesonide 0.25 MG/2 ML Neb Susp NEB SCH ×2 (06:16→21:13)
[2019-01-13] MEDS: Furosemide 20 MG Tab PO SCH ×2 (06:38→13:06)
[2019-01-13] MEDS: INSULIN ISOPHANE NPH HUMAN 100 UNIT/ML SUBCUT SCH ×2 (06:39→17:27)
[2019-01-13] MEDS: Insulin Lispro 100 Units/ML 3 ML Vial SUBCUT SCH ×2 (06:40→17:24)
[2019-01-13] MEDS: Fish Oil/Omega-3 Fatty Acids 1 Gm Cap PO SCH (10:20)
[2019-01-13] MEDS: Metoprolol Succinate 25 MG Tab.ER PO SCH (10:21)
[2019-01-13] MEDS: Apixaban 5 MG Tab PO SCH ×2 (10:21→20:09)
[2019-01-13] MEDS: Cholecalciferol (Vitamin D3) 5,000 UNIT Tab PO SCH (10:21)
[2019-01-13] MEDS: Multivitamins with Minerals/Folic Acid/Lutein/Zeaxanth Tab PO SCH (10:27)
[2019-01-13] MEDS: Benzonatate 100 MG Cap PO SCH ×3 (10:27→20:09)
--- NOTE | 2019-01-13 12:30 | PCM.PN ---
- General Info Date of Service: 01/13/19 Subjective Update: Feels a lot better Had to start High flow O2 Tolerating diet BM yesterday - Patient Data Vitals - Most Recent: Last Vital Signs Temp 36.8 C 01/13/19 08:00 Pulse 81 01/13/19 10:21 Resp 18 01/13/19 08:00 BP 108/52 L 01/13/19 10:21 Pulse Ox 92 L 01/13/19 09:58 Weight - Most Recent: 141.067 kg - Exam Quality Assessment: Supplemental Oxygen, DVT Prophylaxis General: Alert, Oriented, Cooperative, No Acute Distress HEENT: Pupils Equal, Pupils Reactive, Mucous Membr. Moist/[place] Neck: Supple, Trachea Midline, No JVD. No: Lymphadenopathy Lungs: Decreased Breath Sounds, Crackles. No: Rales, Rhonchi, Rub, Stridor, Wheezing Cardiovascular: Regular Rate, Regular Rhythm. No: Murmurs, Gallops, Rubs GI/Abdominal Exam: Normal Bowel Sounds, Soft Back Exam: Normal Inspection Extremities: Normal Inspection, Normal Capillary Refill, Pedal Edema Neurological: No New Focal Deficit Psy/Mental Status: Alert, Normal Affect, Normal Mood - Problem List & Annotations (1) Sepsis SNOMED Code(s): 31486036 Code(s): A41.9 - SEPSIS, UNSPECIFIED ORGANISM Status: Acute Current Visit : Yes (2) Hypertension SNOMED Code(s): 55545352 Code(s): I10 - ESSENTIAL (PRIMARY) HYPERTENSION Status: Acute Current Visit: Yes (3) COPD (chronic obstructive pulmonary disease) SNOMED Code(s): 73143593 Code(s): J44.9 - CHRONIC OBSTRUCTIVE PULMONARY DISEASE, UNSPECIFIED Status : Acute Current Visit: Yes (4) CAD (coronary artery disease) SNOMED Code(s): 54033985 Code(s): I25.10 - ATHSCL HEART DISEASE OF [place] CORONARY ARTERY W/O ANG PCTRS Status: Acute Current Visit: Yes (5) S/P angioplasty with stent SNOMED Code(s): 441623020, 431636608 Code(s): Z95.820 - PERIPHERAL VASCULAR ANGIOPLASTY STATUS W IMPLANTS AND GRAFTS Status: Acute Current Visit: Yes (6) Diabetes mellitus SNOMED Code(s): 03323919 Code(s): E11.9 - TYPE 2 DIABETES MELLITUS WITHOUT COMPLICATIONS Status: Acute Current Visit: Yes (7) Chronic steroid use SNOMED Code(s): 806553475 Code(s): NPV6110 - Status: Acute Current Visit: Yes (8) Chronic hypoxemic respiratory failure SNOMED Code(s): 577407152 Code(s): J96.11 - CHRONIC RESPIRATORY FAILURE WITH HYPOXIA Status: Acute Current Visit: Yes (9) Acute on chronic respiratory failure with hypoxemia SNOMED Code(s): 57926137639369769 Code(s): J96.21 - ACUTE AND CHRONIC RESPIRATORY FAILURE WITH HYPOXIA Status : Acute Current Visit: Yes (10) Dyspnea SNOMED Code(s): 837265431 Code(s): R06.00 - DYSPNEA, UNSPECIFIED Status: Acute Current Visit: No Qualifiers: Dyspnea type: shortness of breath Qualified Code(s): R06.02 - Shortness of breath; R06.00 - Dyspnea, unspecified; R06.01 - Orthopnea (11) Edema of left lower extremity SNOMED Code(s): 451312308, 228739550 Code(s): R60.0 - LOCALIZED EDEMA Status: Acute Current Visit: No (12) Interstitial lung disease SNOMED Code(s): 274602984 Code(s): J84.9 - INTERSTITIAL PULMONARY DISEASE, UNSPECIFIED Status: Acute Current Visit: No (13) Paroxysmal A-fib SNOMED Code(s): 029039718 Code(s): I48.0 - PAROXYSMAL ATRIAL FIBRILLATION Status: Acute Current Visit: No (14) Pulmonary fibrosis SNOMED Code(s): 89969128 Code(s): J84.10 - PULMONARY FIBROSIS, UNSPECIFIED Status: Acute Current Visit: No (15) Chest pain SNOMED Code(s): 63270670 Code(s): R07.9 - CHEST PAIN, UNSPECIFIED Status: Acute Current Visit: No Qualifiers: Chest pain type: precordial pain Qualified Code(s): R07.2 - Precordial pain (16) Hypomagnesemia SNOMED Code(s): 302519713 Code(s): E83.42 - HYPOMAGNESEMIA Status: Acute Current Visit: Yes (17) Bacteremia due to Gram-positive bacteria SNOMED Code(s): 186986022272 Code(s): R78.81 - BACTEREMIA Status: Acute Current Visit: Yes - Problem List Review Problem List Initiated/Reviewed/Updated: Yes - Plan Plan:: Community Acquired PNA, improving Worsening shortness of breath + fever + chills + elevated lactic acid Needs pseudomona coverage as well as MRSA due to underlying lung disease Chronic steroid user, will start stress dose steroids Influenza swab negative PLAN - Continue Levaquin day 3 - RT evaluation and treat - Scheduled DuoNebs q4h, Pulmicort BID, Mucomyst q6h and solumedrol 40mg Iv q8h - Discontinue Vancomycin and Zosyn - Continue Hi-flow oxygen - Procalcitonin q48h Bacteremia 2/2 gram + cocci in chains Culture from admission + No fever spikes Tmax 37.6 PLAN - Repeat cultures today, 48 h nagi - Echocardiogram on Monday Atrial fibrillation with RVR Went in to RVR yesterday >130's Given Cardizem load Started on Cardizem drip PLAN - Start cardizem PO today once drip is off - Continue Eliquis Acute on chronic hypoxemic respiratory failure in the setting of interstitial lung disease and COPD with pneumonia Patient with acutely worsening shortness of breath Home O2 at 8L via [place] 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, 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, 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 Scheduled DuoNebs and Pulmicort at home On Anoro Ellipta CT with extensive and disseminated pulmonary fibrosis Back at baseline O2 requirements O2Sat trend: 82-95% on 8L [place] PLAN - Treat PNA - RT evaluation and treat - Continue oxygen supplementation via NC - Hold home inhalers Ischemic heart failure, unknown EF On Furosemide, isosorbide and metoprolol at home BL LE edema on physical exam Echocardiogram done 11/2018 PLAN - Lasix 40mg PO BID - Strict intake and output - Daily weights - Request records Chronic steroid use Hold home PO steroids Start stress dose steroids PLAN - Solumedrol 40mg IV q8h - Glucose control as per diabetes Chest pain in the setting of CAD s/p stent placement Home management with clopidogrel and isosorbide mononitrate Troponin on admission negative PLAN - Trend troponin q4h x 3 - Repeat EKG in AM - Admit with telemetry - Continue clopidogrel and isosorbide at home dose - PRN NTG Hypomagnesemia No changes on telemetry K and Pi normal PLAN - Replace with MgSO4 2g Diabetes mellitus, JiZ8q-9.7% On NPH 28u BID, metformin and glimepiride at home Trend 158-292, req 6u on sliding scale PLAN - Accuchecks TID AC and HS - High sensitivity sliding scale - Hypoglycemia protocol - Diabetic 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 - Reduce home insulin dose to 20 BID - Hold glimepiride and metformin Hypertension MAP trend 70-94 Home management with metoprolol PLAN - Continue metoprolol at 50% dose - Evaluate echocardiogram and if patient has decreased EF he would benefit from ANGELINE or ARB - Will monitor BP - PRN Hydralazine 10mg IV for BP > 200/100 Dyslipidemia No acute issues Home management with simvastatin PLAN - Optimize statin due to CAD with rosuvastatin 10mg Polypharmacy Will reconcile according to BEERs criteria prior to discharge Sepsis on admission, resolved PROPHYLAXIS: DVT- eliquis and clopidogrel GI- home pantoprazole CODE STATUS: DNI DISPOSITION: Patient's respiratory status has greatly improved, transferred back to ICU due to RVR and diltiazem drip. Will remain there for today.
[2019-01-13] MEDS: Vancomycin 2 GM in Sodium Chloride 0.9% 500 ML IV SCH (17:22)
[2019-01-13] MEDS ORDERED: Magnesium Sulfate/Water 4 GM in Premix Bag 1 BAG IV ONE (19:30)
[2019-01-13] MEDS ORDERED: Magnesium Sulfate (4 meq/ML) 10 GM/20 ML SDV IV ONE (20:00)
[2019-01-13] MEDS: Potassium Chloride 10 MEQ in Premix Bag 1 BAG IV SCH ×2 (20:02→21:02)
[2019-01-14] MEDS: Albuterol/Ipratropium 3.0-0.5 MG/3 ML Neb Soln NEB SCH ×3 (02:07→08:59)
[2019-01-14] MEDS: Hydrocortisone Sodium Succinate 100 MG/2 ML SDV IVPUSH SCH ×3 (04:15→20:17)
[2019-01-14] MEDS: guaiFENesin/Dextromethorphan 100-10 MG/5 ML Soln 5 ML Cup PO SCH ×5 (04:15→20:16)
[2019-01-14] MEDS: Budesonide 0.25 MG/2 ML Neb Susp NEB SCH ×2 (06:10→21:00)
[2019-01-14] MEDS: Acetylcysteine 20% 200 MG/ML 4 ML Nebulizer Soln SDV NEB SCH ×2 (06:10→08:59)
[2019-01-14] MEDS: Furosemide 20 MG Tab PO SCH ×2 (06:35→15:00)
[2019-01-14] MEDS: INSULIN ISOPHANE NPH HUMAN 100 UNIT/ML SUBCUT SCH ×2 (06:38→16:27)
[2019-01-14] MEDS: Insulin Lispro 100 Units/ML 3 ML Vial SUBCUT SCH ×2 (06:39→16:26)
[2019-01-14] MEDS: Multivitamins with Minerals/Folic Acid/Lutein/Zeaxanth Tab PO SCH (08:08)
[2019-01-14] MEDS: Benzonatate 100 MG Cap PO SCH ×3 (08:08→20:17)
[2019-01-14] MEDS: Fish Oil/Omega-3 Fatty Acids 1 Gm Cap PO SCH (08:08)
[2019-01-14] MEDS: Apixaban 5 MG Tab PO SCH ×2 (08:08→20:17)
[2019-01-14] MEDS: Cholecalciferol (Vitamin D3) 5,000 UNIT Tab PO SCH (08:08)
[2019-01-14] MEDS: Metoprolol Succinate 25 MG Tab.ER PO SCH (08:08)
[2019-01-14] MEDS ORDERED: Diltiazem 125 MG/25 ML SDV ONE (08:19)
[2019-01-14] MEDS ORDERED: Diltiazem 50 MG/10 ML SDV IVPUSH ONE (08:30)
[2019-01-14] MEDS ORDERED: Sodium Chloride 0.9% 0 ML ONE (08:30)
[2019-01-14] MEDS ORDERED: Lactated Ringers 1,000 ML ONE (08:31)
[2019-01-14] MEDS ORDERED: Lactated Ringers 500 ML IV ONE (08:35)
[2019-01-14] MEDS: Diltiazem 125 MG in Sodium Chloride 0.9% 100 ML IV SCH (08:38)
[2019-01-14] MEDS: Levofloxacin/Dextrose 5%-Water 750 MG in Premix Bag 1 BAG IV SCH (09:28)
[2019-01-14] MEDS: Diltiazem IR 60 MG Tab PO SCH ×2 (11:38→20:16)
[2019-01-14] MEDS: Levalbuterol HCl 1.25 MG/3 ML Neb NEB SCH ×2 (14:12→21:00)
[2019-01-14] MEDS ORDERED: methylPREDNISolone Sodium Succinate 125 MG/2 ML SDV IVPUSH ONE (14:46)
[2019-01-14] MEDS ORDERED: methylPREDNISolone Sodium Succinate 125 MG/2 ML SDV ONE (14:46)
[2019-01-14] MEDS ORDERED: Magnesium Sulfate/Water 2 GM in Premix Bag 1 BAG IV STA (14:48)
[2019-01-14] MEDS ORDERED: Acetylcysteine 20% 200 MG/ML 4 ML Nebulizer Soln SDV NEB SCH (15:00)
[2019-01-14] MEDS ORDERED: LORazepam 2 MG/ML SDV IVPUSH ONE ×2 (16:04→22:00)
--- NOTE | 2019-01-14 19:31 | PCM.PN ---
- General Info Date of Service: 01/14/19 Subjective Update: Slept better Shortness of breath is stable Tolerating diet BM yesterday - Patient Data Vitals - Most Recent: Last Vital Signs Temp 36.9 C 01/14/19 16:00 Pulse 135 H 01/14/19 10:00 Resp 25 H 01/14/19 16:00 BP 122/65 01/14/19 16:00 Pulse Ox 99 01/14/19 16:53 Weight - Most Recent: 141.793 kg - Exam Quality Assessment: Supplemental Oxygen, DVT Prophylaxis General: Alert, Oriented, Cooperative, Moderate Distress HEENT: Pupils Equal Neck: Supple, Trachea Midline. No: Lymphadenopathy Lungs: Decreased Breath Sounds, Crackles Cardiovascular: Irregular Rhythm, Tachycardia GI/Abdominal Exam: Normal Bowel Sounds, Soft Back Exam: Normal Inspection Extremities: Normal Inspection, Pedal Edema, Slow Capillary Refill Neurological: No New Focal Deficit Psy/Mental Status: Alert - Problem List & Annotations (1) Sepsis SNOMED Code(s): 82943473 Code(s): A41.9 - SEPSIS, UNSPECIFIED ORGANISM Status: Acute Current Visit : Yes (2) Hypertension SNOMED Code(s): 13291668 Code(s): I10 - ESSENTIAL (PRIMARY) HYPERTENSION Status: Acute Current Visit: Yes (3) COPD (chronic obstructive pulmonary disease) SNOMED Code(s): 61036794 Code(s): J44.9 - CHRONIC OBSTRUCTIVE PULMONARY DISEASE, UNSPECIFIED Status : Acute Current Visit: Yes (4) CAD (coronary artery disease) SNOMED Code(s): 81615540 Code(s): I25.10 - ATHSCL HEART DISEASE OF [place] CORONARY ARTERY W/O ANG PCTRS Status: Acute Current Visit: Yes (5) S/P angioplasty with stent SNOMED Code(s): 193521767, 179633001 Code(s): Z95.820 - PERIPHERAL VASCULAR ANGIOPLASTY STATUS W IMPLANTS AND GRAFTS Status: Acute Current Visit: Yes (6) Diabetes mellitus SNOMED Code(s): 52405374 Code(s): E11.9 - TYPE 2 DIABETES MELLITUS WITHOUT COMPLICATIONS Status: Acute Current Visit: Yes (7) Chronic steroid use SNOMED Code(s): 090781002 Code(s): SGH5283 - Status: Acute Current Visit: Yes (8) Chronic hypoxemic respiratory failure SNOMED Code(s): 963312625 Code(s): J96.11 - CHRONIC RESPIRATORY FAILURE WITH HYPOXIA Status: Acute Current Visit: Yes (9) Acute on chronic respiratory failure with hypoxemia SNOMED Code(s): 96677585028187436 Code(s): J96.21 - ACUTE AND CHRONIC RESPIRATORY FAILURE WITH HYPOXIA Status : Acute Current Visit: Yes (10) Dyspnea SNOMED Code(s): 835831727 Code(s): R06.00 - DYSPNEA, UNSPECIFIED Status: Acute Current Visit: No Qualifiers: Dyspnea type: shortness of breath Qualified Code(s): R06.02 - Shortness of breath; R06.00 - Dyspnea, unspecified; R06.01 - Orthopnea (11) Edema of left lower extremity SNOMED Code(s): 960856976, 767565740 Code(s): R60.0 - LOCALIZED EDEMA Status: Acute Current Visit: No (12) Interstitial lung disease SNOMED Code(s): 362625320 Code(s): J84.9 - INTERSTITIAL PULMONARY DISEASE, UNSPECIFIED Status: Acute Current Visit: No (13) Paroxysmal A-fib SNOMED Code(s): 167344438 Code(s): I48.0 - PAROXYSMAL ATRIAL FIBRILLATION Status: Acute Current Visit: No (14) Pulmonary fibrosis SNOMED Code(s): 94737146 Code(s): J84.10 - PULMONARY FIBROSIS, UNSPECIFIED Status: Acute Current Visit: No (15) Chest pain SNOMED Code(s): 10850486 Code(s): R07.9 - CHEST PAIN, UNSPECIFIED Status: Acute Current Visit: No Qualifiers: Chest pain type: precordial pain Qualified Code(s): R07.2 - Precordial pain (16) Hypomagnesemia SNOMED Code(s): 690698083 Code(s): E83.42 - HYPOMAGNESEMIA Status: Acute Current Visit: Yes (17) Bacteremia due to Gram-positive bacteria SNOMED Code(s): 436078591685 Code(s): R78.81 - BACTEREMIA Status: Acute Current Visit: Yes (18) Atrial fibrillation with RVR SNOMED Code(s): 919400891166540 Code(s): I48.91 - UNSPECIFIED ATRIAL FIBRILLATION Status: Acute Current Visit: Yes (19) Hypokalemia SNOMED Code(s): 38036970 Code(s): E87.6 - HYPOKALEMIA Status: Acute Current Visit: Yes (20) Hypophosphatemia SNOMED Code(s): 7656343 Code(s): E83.39 - OTHER DISORDERS OF PHOSPHORUS METABOLISM Status: Acute Current Visit: Yes (21) Hypomagnesemia SNOMED Code(s): 462462693 Code(s): E83.42 - HYPOMAGNESEMIA Status: Acute Current Visit: Yes - Problem List Review Problem List Initiated/Reviewed/Updated: Yes - Plan Plan:: Acute on chronic hypoxemic respiratory failure in the setting of interstitial lung disease and COPD with pneumonia Patient with acutely worsening shortness of breath Home O2 at 8L via [place] 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, 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, 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 Scheduled DuoNebs and Pulmicort at home and Anoro Ellipta CT with extensive and disseminated pulmonary fibrosis Episode of severe dyspnea requiring BiPAP placement Had to place him on hiflow nasal canula for oxygenation and today upgraded to BiPAP PLAN - Solumedrol scheduled - Mg sulfate x 1 dose - Continue BiPAP - Discontinue DuoNebs - Start Xopenex nebs - Continue budesonide - Start codeine guaifenessin cough syrup Community Acquired PNA, improving Worsening shortness of breath + fever + chills + elevated lactic acid Needs pseudomona coverage as well as MRSA due to underlying lung disease Chronic steroid user, will start stress dose steroids Influenza swab negative PLAN - Continue Levaquin day 3 - RT evaluation and treat - Scheduled DuoNebs q4h, Pulmicort BID, Mucomyst q6h and solumedrol 40mg Iv q8h - Discontinue Vancomycin and Zosyn - Continue Hi-flow oxygen - Procalcitonin q48h Bacteremia 2/2 gram + cocci in chains Culture from admission + No fever spikes Tmax 37.6 PLAN - Repeat cultures today, 48 h nagi - Echocardiogram on Monday Atrial fibrillation with RVR Went in to RVR sati and reverted to sinus after dilt drip Reverted back this morning to 170s Restarted on drip--> currently rate controlled PLAN - Start cardizem PO today - Continue Eliquis Ischemic heart failure, unknown EF On Furosemide, isosorbide and metoprolol at home BL LE edema on physical exam Echocardiogram done 11/2018 PLAN - Lasix 40mg PO BID - Strict intake and output - Daily weights - Request records Chronic steroid use Hold home PO steroids Start stress dose steroids PLAN - Solumedrol 40mg IV q8h - Glucose control as per diabetes Chest pain in the setting of CAD s/p stent placement Home management with clopidogrel and isosorbide mononitrate Troponin on admission negative PLAN - Trend troponin q4h x 3 - Repeat EKG in AM - Admit with telemetry - Continue clopidogrel and isosorbide at home dose - PRN NTG Hypomagnesemia Hypokalemia Hypophosphatemia PLAN - Replace all - Repeat labs in AM Diabetes mellitus, HoF8b-7.7% On NPH 28u BID, metformin and glimepiride at home Trend 158-292, req 6u on sliding scale PLAN - Accuchecks TID AC and HS - High sensitivity sliding scale - Hypoglycemia protocol - Diabetic diet - 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 - Reduce home insulin dose to 20 BID - Hold glimepiride and metformin Hypertension MAP trend 70-94 Home management with metoprolol PLAN - Continue metoprolol at 50% dose - Evaluate echocardiogram and if patient has decreased EF he would benefit from ANGELINE or ARB - Will monitor BP - PRN Hydralazine 10mg IV for BP > 200/100 Dyslipidemia No acute issues Home management with simvastatin PLAN - Optimize statin due to CAD with rosuvastatin 10mg Polypharmacy Will reconcile according to BEERs criteria prior to discharge Sepsis on admission, resolved PROPHYLAXIS: DVT- eliquis and clopidogrel GI- home pantoprazole CODE STATUS: DNI DISPOSITION: Patient's respiratory status continues to decline, today he requires placement on BiPAP at 100% FiO2 to keep adequate oxygenation. Extensive conversation was had with family regarding plan of care, refer to social security benefits interviewer note for details.
[2019-01-15] MEDS: guaiFENesin/Dextromethorphan 100-10 MG/5 ML Soln 5 ML Cup PO SCH ×3 (01:48→08:44)
[2019-01-15] MEDS: Levalbuterol HCl 1.25 MG/3 ML Neb NEB SCH ×4 (03:03→21:07)
[2019-01-15] MEDS: Diltiazem IR 60 MG Tab PO SCH ×3 (03:12→20:40)
[2019-01-15] MEDS: Hydrocortisone Sodium Succinate 100 MG/2 ML SDV IVPUSH SCH ×3 (05:10→20:37)
[2019-01-15] MEDS: Furosemide 20 MG Tab PO SCH (07:51)
[2019-01-15] MEDS: Insulin Lispro 100 Units/ML 3 ML Vial SUBCUT SCH ×2 (07:53→16:37)
[2019-01-15] MEDS: INSULIN ISOPHANE NPH HUMAN 100 UNIT/ML SUBCUT SCH ×2 (07:56→16:39)
[2019-01-15] MEDS: Budesonide 0.25 MG/2 ML Neb Susp NEB SCH ×2 (08:22→21:07)
[2019-01-15] MEDS: Benzonatate 100 MG Cap PO SCH ×3 (08:44→20:37)
[2019-01-15] MEDS: Cholecalciferol (Vitamin D3) 5,000 UNIT Tab PO SCH (08:45)
[2019-01-15] MEDS: Apixaban 5 MG Tab PO SCH ×2 (08:45→20:37)
[2019-01-15] MEDS: Multivitamins with Minerals/Folic Acid/Lutein/Zeaxanth Tab PO SCH (08:45)
[2019-01-15] MEDS: Fish Oil/Omega-3 Fatty Acids 1 Gm Cap PO SCH (08:46)
[2019-01-15] MEDS: Metoprolol Succinate 25 MG Tab.ER PO SCH (08:52)
[2019-01-15] MEDS: Levofloxacin/Dextrose 5%-Water 750 MG in Premix Bag 1 BAG IV SCH (09:07)
[2019-01-15] MEDS ORDERED: Furosemide 40 MG/4 ML VIAL IVPUSH ONE (11:17)
[2019-01-15] MEDS ORDERED: Codeine/guaiFENesin 100-10 MG/5 ML Syrup 5 ML Cup PO PRN (11:37)
[2019-01-15] MEDS: Morphine 2 MG/ML Syringe IVPUSH PRN ×2 (18:41→22:04)
--- NOTE | 2019-01-15 19:43 | PCM.PN ---
- General Info Date of Service: 01/15/19 Subjective Update: Respiratory status continues to decline He was able to sleep all night with BiPAP on No BM yet Tolerating diet Desaturates significantly with any sort of activity - Patient Data Vitals - Most Recent: Last Vital Signs Temp 36.6 C 01/15/19 08:00 Pulse 88 01/15/19 15:58 Resp 22 H 01/15/19 15:58 BP 113/92 H 01/15/19 15:58 Pulse Ox 76 L 01/15/19 14:17 Weight - Most Recent: 141.793 kg - Exam Quality Assessment: Supplemental Oxygen, Urine Catheter, DVT Prophylaxis. No: Central Line/PICC, Skin Breakdown, Restraints General: Alert, Oriented, Cooperative, Moderate Distress HEENT: Pupils Equal, Pupils Reactive, Mucous Membr. Moist/[place] Neck: Supple, Trachea Midline Lungs: Decreased Breath Sounds, Crackles Cardiovascular: Regular Rate, Regular Rhythm GI/Abdominal Exam: Soft, Non-Tender. No: Distended, Guarding, Rigid, Rebound Back Exam: Normal Inspection. No: CVA Tenderness (L), CVA Tenderness (R) Extremities: Pedal Edema, Slow Capillary Refill Neurological: No New Focal Deficit Psy/Mental Status: Alert, Depressed - Problem List & Annotations (1) Sepsis SNOMED Code(s): 54222830 Code(s): A41.9 - SEPSIS, UNSPECIFIED ORGANISM Status: Acute Current Visit : Yes (2) Hypertension SNOMED Code(s): 32453552 Code(s): I10 - ESSENTIAL (PRIMARY) HYPERTENSION Status: Acute Current Visit: Yes (3) COPD (chronic obstructive pulmonary disease) SNOMED Code(s): 12861304 Code(s): J44.9 - CHRONIC OBSTRUCTIVE PULMONARY DISEASE, UNSPECIFIED Status : Acute Current Visit: Yes (4) CAD (coronary artery disease) SNOMED Code(s): 08184716 Code(s): I25.10 - ATHSCL HEART DISEASE OF [place] CORONARY ARTERY W/O ANG PCTRS Status: Acute Current Visit: Yes (5) S/P angioplasty with stent SNOMED Code(s): 841947887, 938036291 Code(s): Z95.820 - PERIPHERAL VASCULAR ANGIOPLASTY STATUS W IMPLANTS AND GRAFTS Status: Acute Current Visit: Yes (6) Diabetes mellitus SNOMED Code(s): 83635183 Code(s): E11.9 - TYPE 2 DIABETES MELLITUS WITHOUT COMPLICATIONS Status: Acute Current Visit: Yes (7) Chronic steroid use SNOMED Code(s): 405854275 Code(s): QTG2205 - Status: Acute Current Visit: Yes (8) Chronic hypoxemic respiratory failure SNOMED Code(s): 843770051 Code(s): J96.11 - CHRONIC RESPIRATORY FAILURE WITH HYPOXIA Status: Acute Current Visit: Yes (9) Acute on chronic respiratory failure with hypoxemia SNOMED Code(s): 14637971529486347 Code(s): J96.21 - ACUTE AND CHRONIC RESPIRATORY FAILURE WITH HYPOXIA Status : Acute Current Visit: Yes (10) Dyspnea SNOMED Code(s): 517501734 Code(s): R06.00 - DYSPNEA, UNSPECIFIED Status: Acute Current Visit: No Qualifiers: Dyspnea type: shortness of breath Qualified Code(s): R06.02 - Shortness of breath; R06.00 - Dyspnea, unspecified; R06.01 - Orthopnea (11) Edema of left lower extremity SNOMED Code(s): 198954713, 536895959 Code(s): R60.0 - LOCALIZED EDEMA Status: Acute Current Visit: No (12) Interstitial lung disease SNOMED Code(s): 184650781 Code(s): J84.9 - INTERSTITIAL PULMONARY DISEASE, UNSPECIFIED Status: Acute Current Visit: No (13) Paroxysmal A-fib SNOMED Code(s): 323211131 Code(s): I48.0 - PAROXYSMAL ATRIAL FIBRILLATION Status: Acute Current Visit: No (14) Pulmonary fibrosis SNOMED Code(s): 93782841 Code(s): J84.10 - PULMONARY FIBROSIS, UNSPECIFIED Status: Acute Current Visit: No (15) Chest pain SNOMED Code(s): 89980568 Code(s): R07.9 - CHEST PAIN, UNSPECIFIED Status: Acute Current Visit: No Qualifiers: Chest pain type: precordial pain Qualified Code(s): R07.2 - Precordial pain (16) Hypomagnesemia SNOMED Code(s): 861826743 Code(s): E83.42 - HYPOMAGNESEMIA Status: Acute Current Visit: Yes (17) Bacteremia due to Gram-positive bacteria SNOMED Code(s): 998125451491 Code(s): R78.81 - BACTEREMIA Status: Acute Current Visit: Yes (18) Atrial fibrillation with RVR SNOMED Code(s): 023307300283313 Code(s): I48.91 - UNSPECIFIED ATRIAL FIBRILLATION Status: Acute Current Visit: Yes (19) Hypokalemia SNOMED Code(s): 86446183 Code(s): E87.6 - HYPOKALEMIA Status: Acute Current Visit: Yes (20) Hypophosphatemia SNOMED Code(s): 5530884 Code(s): E83.39 - OTHER DISORDERS OF PHOSPHORUS METABOLISM Status: Acute Current Visit: Yes (21) Hypomagnesemia SNOMED Code(s): 598245817 Code(s): E83.42 - HYPOMAGNESEMIA Status: Acute Current Visit: Yes - Problem List Review Problem List Initiated/Reviewed/Updated: Yes - Plan Plan:: Acute on chronic hypoxemic respiratory failure End stage interstitial lung disease COPD Baseline 8L NC with scheduled DuoNebs, Pulmicort and Po Prednisone adn Anoro Ellipta ILD 2/2 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 If he is more fatigued place on BiPAP Community Acquired PNA, improving Worsening shortness of breath + fever + chills + elevated lactic acid on admission --> started on triple ATB therapy --> Negative sputum culture, mycoplasma and influenza swab Continued only Levaquin, day 5 today Patient's continuous decline is from his baseline ILD, pneumonia is being treated and patient has no signs of an active infection PLAN - Complete 7 days of Levaquin - F/U on procalcitonin levels Bacteremia 2/2 Strep salivarius Sensitive to levaquin No fever spikes Repeat cultures negative PLAN - Repeat cultures today, 48 h nagi - Echocardiogram on Monday Atrial fibrillation with RVR 11/2--> RVR 140's--> transferred back to ICU for Diltiazem drip --> reverted to sinus 01/14--> RVR 170's--> Back on diltiazem drip --> transitioned to PO 120 TID Currently rate controlled BP borderline so will change TID Diltiazem and BID PLAN - Change Diltiazem from TID to BID due to BP being borderline - Continue Eliquis Ischemic heart failure, unknown EF On Furosemide, isosorbide and metoprolol at home BL LE edema on physical exam Echocardiogram done 11/2018 PLAN - Lasix 40mg PO BID - Strict intake and output - Daily weights - Request records Chronic steroid use Hold home PO steroids Start stress dose steroids PLAN - Solumedrol 40mg IV q8h - Glucose control as per diabetes Chest pain in the setting of CAD s/p stent placement Home management with clopidogrel and isosorbide mononitrate Troponin on admission negative PLAN - Continue clopidogrel and isosorbide at home dose - PRN NTG Diabetes mellitus, FiG6n-4.7% On NPH 28u BID, metformin and glimepiride at home Trend [phone], req 21u on sliding scale PLAN - Accuchecks TID AC and HS - High sensitivity sliding scale - Hypoglycemia protocol - Diabetic diet - Increase insulin to 35 - Hold glimepiride and metformin Hypertension MAP trend 70-94 Home management with metoprolol PLAN - Continue metoprolol at 50% dose - Decrease Diltiazem to BID - PRN Hydralazine 10mg IV for BP > 200/100 Dyslipidemia No acute issues Home management with simvastatin PLAN - Optimize statin due to CAD with rosuvastatin 10mg Polypharmacy Will reconcile according to BEERs criteria prior to discharge Sepsis on admission, resolved Hypomagnesemia/Hypokalemia/Hypophosphatemia, resolved PROPHYLAXIS: DVT- eliquis and clopidogrel GI- home pantoprazole CODE STATUS: DNI DISPOSITION: Patient's respiratory status continues to decline, today he requires placement on BiPAP at 100% FiO2 to keep adequate oxygenation. Meeting with , son and daughter (over the phone) about patient's current status; due to patient's steady decline in respiratory status and suboptimal response to current treatment regimen. Please refer to case liner's note for details.
[2019-01-15] MEDS ORDERED: Diltiazem IR 60 MG Tab PO SCH (20:30)
[2019-01-15] MEDS: Furosemide 40 MG/4 ML VIAL IVPUSH SCH (20:38)
[2019-01-15] MEDS: Diltiazem 125 MG in Sodium Chloride 0.9% 100 ML IV SCH (22:20)
[2019-01-16] MEDS: Levalbuterol HCl 1.25 MG/3 ML Neb NEB SCH ×4 (03:08→22:28)
[2019-01-16] MEDS: Hydrocortisone Sodium Succinate 100 MG/2 ML SDV IVPUSH SCH ×3 (04:48→20:17)
[2019-01-16] MEDS: Diltiazem 125 MG in Sodium Chloride 0.9% 100 ML IV SCH (05:09)
[2019-01-16] MEDS: Insulin Lispro 100 Units/ML 3 ML Vial SUBCUT SCH ×2 (06:47→16:08)
[2019-01-16] MEDS: INSULIN ISOPHANE NPH HUMAN 100 UNIT/ML SUBCUT SCH ×2 (06:54→16:05)
[2019-01-16] MEDS: Budesonide 0.25 MG/2 ML Neb Susp NEB SCH ×2 (09:28→22:33)
[2019-01-16] MEDS: Furosemide 40 MG/4 ML VIAL IVPUSH SCH ×2 (09:29→20:23)
[2019-01-16] MEDS: Morphine 2 MG/ML Syringe IVPUSH PRN ×3 (09:36→18:33)
[2019-01-16] MEDS: Apixaban 5 MG Tab PO SCH ×2 (09:39→20:20)
[2019-01-16] MEDS: Cholecalciferol (Vitamin D3) 5,000 UNIT Tab PO SCH (09:40)
[2019-01-16] MEDS: Metoprolol Succinate 25 MG Tab.ER PO SCH (09:40)
[2019-01-16] MEDS: Fish Oil/Omega-3 Fatty Acids 1 Gm Cap PO SCH (09:42)
[2019-01-16] MEDS: Multivitamins with Minerals/Folic Acid/Lutein/Zeaxanth Tab PO SCH (09:42)
[2019-01-16] MEDS: Benzonatate 100 MG Cap PO SCH ×3 (09:42→20:21)
[2019-01-16] MEDS: Levofloxacin/Dextrose 5%-Water 750 MG in Premix Bag 1 BAG IV SCH (09:43)
[2019-01-16] MEDS: Diltiazem IR 60 MG Tab PO SCH ×2 (11:19→20:20)
[2019-01-16] MEDS ORDERED: Metoprolol Tartrate 50 MG Tab PO SCH (14:00)
[2019-01-16] MEDS ORDERED: Metoprolol Tartrate 5 MG/5 ML SDV IVPUSH PRN (14:44)
--- NOTE | 2019-01-16 15:25 | PCM.PN ---
- General Info Date of Service: 01/16/19 Subjective Update: Slept through the night on BiPAP Tolerating diet Very anxious Required multiple morphine doses - Patient Data Vitals - Most Recent: Last Vital Signs Temp 97.7 F 01/16/19 08:00 Pulse 122 H 01/16/19 12:00 Resp 22 H 01/16/19 12:00 BP 100/65 01/16/19 12:00 Pulse Ox 88 L 01/16/19 12:00 Weight - Most Recent: 141.067 kg - Exam Quality Assessment: Supplemental Oxygen, Urine Catheter, DVT Prophylaxis. No: Central Line/PICC General: Alert, Oriented, Cooperative, Moderate Distress HEENT: Pupils Equal, Pupils Reactive, Mucous Membr. Moist/[place] Neck: Supple, Trachea Midline Lungs: Decreased Breath Sounds, Crackles Cardiovascular: Regular Rate, Regular Rhythm GI/Abdominal Exam: Soft, Non-Tender Extremities: Normal Inspection, Slow Capillary Refill Psy/Mental Status: Depressed - Problem List & Annotations (1) Sepsis SNOMED Code(s): 49808098 Code(s): A41.9 - SEPSIS, UNSPECIFIED ORGANISM Status: Acute Current Visit : Yes (2) Hypertension SNOMED Code(s): 41811503 Code(s): I10 - ESSENTIAL (PRIMARY) HYPERTENSION Status: Acute Current Visit: Yes (3) COPD (chronic obstructive pulmonary disease) SNOMED Code(s): 19909778 Code(s): J44.9 - CHRONIC OBSTRUCTIVE PULMONARY DISEASE, UNSPECIFIED Status : Acute Current Visit: Yes (4) CAD (coronary artery disease) SNOMED Code(s): 85577814 Code(s): I25.10 - ATHSCL HEART DISEASE OF [place] CORONARY ARTERY W/O ANG PCTRS Status: Acute Current Visit: Yes (5) S/P angioplasty with stent SNOMED Code(s): 552419749, 007158423 Code(s): Z95.820 - PERIPHERAL VASCULAR ANGIOPLASTY STATUS W IMPLANTS AND GRAFTS Status: Acute Current Visit: Yes (6) Diabetes mellitus SNOMED Code(s): 56939744 Code(s): E11.9 - TYPE 2 DIABETES MELLITUS WITHOUT COMPLICATIONS Status: Acute Current Visit: Yes (7) Chronic steroid use SNOMED Code(s): 928681846 Code(s): LGK8147 - Status: Acute Current Visit: Yes (8) Chronic hypoxemic respiratory failure SNOMED Code(s): 078821960 Code(s): J96.11 - CHRONIC RESPIRATORY FAILURE WITH HYPOXIA Status: Acute Current Visit: Yes (9) Acute on chronic respiratory failure with hypoxemia SNOMED Code(s): 30059458710327453 Code(s): J96.21 - ACUTE AND CHRONIC RESPIRATORY FAILURE WITH HYPOXIA Status : Acute Current Visit: Yes (10) Dyspnea SNOMED Code(s): 766884603 Code(s): R06.00 - DYSPNEA, UNSPECIFIED Status: Acute Current Visit: No Qualifiers: Dyspnea type: shortness of breath Qualified Code(s): R06.02 - Shortness of breath; R06.00 - Dyspnea, unspecified; R06.01 - Orthopnea (11) Edema of left lower extremity SNOMED Code(s): 126313821, 067817869 Code(s): R60.0 - LOCALIZED EDEMA Status: Acute Current Visit: No (12) Interstitial lung disease SNOMED Code(s): 879535210 Code(s): J84.9 - INTERSTITIAL PULMONARY DISEASE, UNSPECIFIED Status: Acute Current Visit: No (13) Paroxysmal A-fib SNOMED Code(s): 429430082 Code(s): I48.0 - PAROXYSMAL ATRIAL FIBRILLATION Status: Acute Current Visit: No (14) Pulmonary fibrosis SNOMED Code(s): 49879629 Code(s): J84.10 - PULMONARY FIBROSIS, UNSPECIFIED Status: Acute Current Visit: No (15) Chest pain SNOMED Code(s): 68945607 Code(s): R07.9 - CHEST PAIN, UNSPECIFIED Status: Acute Current Visit: No Qualifiers: Chest pain type: precordial pain Qualified Code(s): R07.2 - Precordial pain (16) Hypomagnesemia SNOMED Code(s): 003499425 Code(s): E83.42 - HYPOMAGNESEMIA Status: Acute Current Visit: Yes (17) Bacteremia due to Gram-positive bacteria SNOMED Code(s): 424942141544 Code(s): R78.81 - BACTEREMIA Status: Acute Current Visit: Yes (18) Atrial fibrillation with RVR SNOMED Code(s): 512865267114659 Code(s): I48.91 - UNSPECIFIED ATRIAL FIBRILLATION Status: Acute Current Visit: Yes (19) Hypokalemia SNOMED Code(s): 39856074 Code(s): E87.6 - HYPOKALEMIA Status: Acute Current Visit: Yes (20) Hypophosphatemia SNOMED Code(s): 9393273 Code(s): E83.39 - OTHER DISORDERS OF PHOSPHORUS METABOLISM Status: Acute Current Visit: Yes (21) Hypomagnesemia SNOMED Code(s): 311554874 Code(s): E83.42 - HYPOMAGNESEMIA Status: Acute Current Visit: Yes - Problem List Review Problem List Initiated/Reviewed/Updated: Yes - Plan Plan:: Acute on chronic hypoxemic respiratory failure End stage interstitial lung disease COPD Baseline 8L NC with scheduled DuoNebs, Pulmicort and Po Prednisone adn Anoro Ellipta ILD 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 If he is more fatigued place on BiPAP Atrial fibrillation with RVR 11/--> RVR 140's--> transferred back to ICU for Diltiazem drip --> reverted to sinus 01/14--> RVR 170's--> Back on diltiazem drip --> transitioned to PO 120 TID 01/15 --> Rate controlled hen back into A. fib, restarted on diltiazem drip 01/16--> diltiazem was not controlling rate so patient was started on amiodarone load and drip HR trend 69-135 PLAN - Discontinue diltiazem drip and PO - Start Amiodarone drip - Continue Eliquis Coronary artery disease Severe pulmonary hypertension On Furosemide, isosorbide and metoprolol at home BL LE edema on physical exam RVSP > 60 PLAN - Lasix 40mg PO BID - Strict intake and output - Daily weights Chronic steroid use Hold home PO steroids Start stress dose steroids PLAN - Solumedrol 40mg IV q8h - Glucose control as per diabetes Chest pain in the setting of CAD s/p stent placement Home management with clopidogrel and isosorbide mononitrate Troponin on admission negative PLAN - Continue clopidogrel - Stop isosorbide at home dose - PRN NTG Diabetes mellitus, SoN5q-9.7% On NPH 28u BID, metformin and glimepiride at home Trend [phone], req 27u on sliding scale PLAN - Accuchecks TID AC and HS - High sensitivity sliding scale - Hypoglycemia protocol - Diabetic diet - Increase insulin to 45 - Hold glimepiride and metformin Hypertension MAP trend 71-113 Home management with metoprolol PLAN - Continue metoprolol at 50% dose - Decrease Diltiazem to BID - PRN Hydralazine 10mg IV for BP > 200/100 Dyslipidemia No acute issues Home management with simvastatin PLAN - Optimize statin due to CAD with rosuvastatin 10mg Polypharmacy Will reconcile according to BEERs criteria prior to discharge Sepsis on admission, resolved Hypomagnesemia/Hypokalemia/Hypophosphatemia, resolved Systolic dysfunction ruled out with echocardiogram Community Acquired PNA, , completed treatment Bacteremia 2/2 Strep salivarius, completed treatment PROPHYLAXIS: DVT- eliquis and clopidogrel GI- home pantoprazole CODE STATUS: DNI DISPOSITION: Patient's respiratory status continues to decline, today he requires placement on BiPAP at 100% FiO2 to keep adequate oxygenation. Meeting with , son and daughter (over the phone) about patient's current status; due to patient's steady decline in respiratory status and suboptimal response to current treatment regimen. Please refer to embedded case manager's note for details.
[2019-01-16] MEDS: Amiodarone 200 MG Tab PO SCH ×2 (16:02→20:20)
[2019-01-17] MEDS: Levalbuterol HCl 1.25 MG/3 ML Neb NEB SCH ×4 (02:34→21:09)
[2019-01-17] MEDS: Hydrocortisone Sodium Succinate 100 MG/2 ML SDV IVPUSH SCH ×3 (04:01→20:18)
[2019-01-17] MEDS: INSULIN ISOPHANE NPH HUMAN 100 UNIT/ML SUBCUT SCH ×2 (06:30→16:18)
[2019-01-17] MEDS: Insulin Lispro 100 Units/ML 3 ML Vial SUBCUT SCH ×2 (06:33→16:18)
[2019-01-17] MEDS: Morphine 2 MG/ML Syringe IVPUSH PRN ×6 (07:08→21:44)
[2019-01-17] MEDS ORDERED: Morphine 2 MG/ML Syringe IVPUSH ONE (08:07)
[2019-01-17] MEDS: Budesonide 0.25 MG/2 ML Neb Susp NEB SCH ×2 (08:34→21:09)
[2019-01-17] MEDS: LORazepam 2 MG/ML SDV IVPUSH PRN ×2 (09:02→16:56)
[2019-01-17] MEDS: Diltiazem IR 60 MG Tab PO SCH ×2 (09:22→20:55)
[2019-01-17] MEDS: Amiodarone 200 MG Tab PO SCH ×2 (09:22→20:55)
[2019-01-17] MEDS: Fish Oil/Omega-3 Fatty Acids 1 Gm Cap PO SCH (09:23)
[2019-01-17] MEDS: Apixaban 5 MG Tab PO SCH ×2 (09:23→20:55)
[2019-01-17] MEDS: Metoprolol Succinate 25 MG Tab.ER PO SCH (09:23)
[2019-01-17] MEDS: Levofloxacin/Dextrose 5%-Water 750 MG in Premix Bag 1 BAG IV SCH (09:23)
[2019-01-17] MEDS: Cholecalciferol (Vitamin D3) 5,000 UNIT Tab PO SCH (09:23)
[2019-01-17] MEDS: Furosemide 40 MG/4 ML VIAL IVPUSH SCH ×2 (09:23→20:55)
[2019-01-17] MEDS: Benzonatate 100 MG Cap PO SCH ×3 (09:23→20:55)
[2019-01-17] MEDS: Multivitamins with Minerals/Folic Acid/Lutein/Zeaxanth Tab PO SCH (09:23)
[2019-01-17] MEDS ORDERED: Levalbuterol HCl 1.25 MG/3 ML Neb NEB PRN (18:25)
[2019-01-17] MEDS ORDERED: LORazepam 2 MG/ML SDV IVPUSH PRN (18:27)
--- NOTE | 2019-01-17 20:13 | PCM.PN ---
- General Info Date of Service: 01/17/19 Subjective Update: patient has had a difficult morning. His oxygen saturations dropped into the 70s and he is now on 15 L high flow nasal cannula and a 15 L nonrebreather mask. Family is at his bedside with anticipation that he will not be able to maintain his oxygenation much longer. - Review of Systems General: Reports: Weakness Pulmonary: Reports: Shortness of Breath Cardiovascular: Denies: Chest Pain - Patient Data Vitals - Most Recent: Last Vital Signs Temp 98.5 F 01/17/19 16:00 Pulse 81 01/17/19 16:00 Resp 28 H 01/17/19 16:00 BP 129/66 01/17/19 16:00 Pulse Ox 82 L 01/17/19 18:38 Weight - Most Recent: 309 lb I&O - Last 24 Hours: Intake & Output 01/17/19 01/17/19 01/17/19 06:59 14:59 22:59 Intake Total 400 236 748 Output Total 2575 525 255 Balance -2175 -289 493 Lab Results Last 24 Hours: Laboratory Results - last 24 hr 01/16/19 01/17/19 01/17/19 Range/Units 20:29 06:28 12:09 POC Glucose 299 H 288 H 204 H (83-110) mg/dL 01/17/19 Range/Units 16:13 POC Glucose 313 H (83-110) mg/dL Aram Results Last 24 Hours: Microbiology 01/10/19 17:13 Aerobic Blood Culture - Final Blood - Venous NO GROWTH AFTER 7 DAYS Anaerobic Blood Culture - Final 01/12/19 21:51 Aerobic Blood Culture - Preliminary Blood - Venous - Lab Draw NO GROWTH AFTER 4 DAYS Anaerobic Blood Culture - Final 01/12/19 21:30 Aerobic Blood Culture - Preliminary Blood - Venous NO GROWTH AFTER 4 DAYS Anaerobic Blood Culture - Preliminary NO GROWTH AFTER 4 DAYS Med Orders - Current: Current Medications Acetaminophen (Tylenol) 650 mg PO Q4H PRN PRN Reason: Pain (Mild 1-3)/fever Amiodarone HCl (Cordarone) 200 mg PO BID [facility] Last Admin: 01/17/19 09:22 Dose: Not Given Apixaban (Eliquis) 5 mg PO BID [facility] Last Admin: 01/17/19 09:23 Dose: Not Given Benzonatate (Tessalon Perles) 100 mg PO TID [facility] Last Admin: 01/17/19 15:56 Dose: Not Given Budesonide (Pulmicort) 0.25 mg NEB BID [facility] Last Admin: 01/17/19 08:34 Dose: 0.25 mg Cholecalciferol (Vitamin D3) 5,000 unit PO DAILY [facility] Last Admin: 01/17/19 09:23 Dose: Not Given Dextrose/Water (Dextrose 50% In Water) 50 ml IVPUSH ASDIRECTED PRN PRN Reason: Hypoglycemia Diltiazem HCl (Cardizem) 120 mg PO BID [facility] Last Admin: 01/17/19 09:22 Dose: Not Given Fish Oil (Fish Oil) 2 gm PO DAILY [facility] Last Admin: 01/17/19 09:23 Dose: Not Given Furosemide (Lasix) 40 mg IVPUSH BID [facility] Last Admin: 01/17/19 09:23 Dose: Not Given Guaifenesin/Codeine Phosphate (Robitussin Ac) 5 ml PO Q4H PRN PRN Reason: COUGH Hydrocortisone Sodium Succinate (Solu-Cortef) 40 mg IVPUSH Q8H [facility] Last Admin: 01/17/19 12:04 Dose: 40 mg Levofloxacin/Dextrose 750 mg/ (Premix) 150 mls @ 100 mls/hr IV Q24H [facility] Last Admin: 01/17/19 09:23 Dose: Not Given Amiodarone HCl/Dextrose (Nexterone In Dextrose 360 Mg/200 Ml) 360 mg in 200 mls @ 33.333 mls/hr IV ASDIRECTED [facility]; Protocol Last Admin: 01/16/19 10:26 Dose: 33.333 mls/hr Insulin Human Lispro (Humalog) 0 unit SUBCUT BIDAC [facility]; Protocol Last Admin: 01/17/19 16:18 Dose: 12 units Levalbuterol HCl (Xopenex) 1.25 mg NEB Q6HRRT [facility] Last Admin: 01/17/19 14:00 Dose: 1.25 mg Levalbuterol HCl (Xopenex) 1.25 mg NEB Q2H PRN PRN Reason: Shortness of Breath Last Admin: 01/17/19 18:35 Dose: 1.25 mg Lorazepam (Ativan) 1 mg IVPUSH Q2H PRN PRN Reason: Anxiety Metoprolol Succinate (Toprol Xl) 12.5 mg PO DAILY [facility] Last Admin: 01/17/19 09:23 Dose: Not Given Metoprolol Tartrate (Lopressor) 2.5 mg IVPUSH Q6H PRN PRN Reason: Tachycardia Morphine Sulfate (Morphine) 2 mg IVPUSH Q1H PRN PRN Reason: Shortness of Breath Last Admin: 01/17/19 17:53 Dose: 2 mg Nitroglycerin (Nitrostat) 0.4 mg SL ASDIRECTED PRN PRN Reason: Chest Pain Last Admin: 01/13/19 02:00 Dose: 0.4 mg Ondansetron HCl (Zofran Odt) 4 mg PO Q6H PRN PRN Reason: nausea, able to take PO Ondansetron HCl (Zofran) 4 mg IV Q6H PRN PRN Reason: Nausea/Vomiting Insulin Isophane Nph , Human 100 Units/Ml 10 Ml Vial Ptom 0 each SUBCUT BIDAC [facility] Last Admin: 01/17/19 16:18 Dose: 35 each Vit A/Vit C/Vit E/Selen/Cu/Zn/Lutei (Icaps Mv) 1 tab PO DAILY [facility] Last Admin: 01/17/19 09:23 Dose: Not Given Discontinued Medications Acetaminophen (Tylenol) 975 mg PO NOW ONE Stop: 01/10/19 17:28 Last Admin: 01/10/19 18:09 Dose: 975 mg Acetylcysteine (Mucomyst 20%) 800 mg NEB QIDRT [facility] Last Admin: 01/14/19 08:59 Dose: 800 mg Acetylcysteine (Mucomyst 20%) 800 mg NEB Q6H [facility] Albuterol/Ipratropium (Duoneb 3.0-0.5 Mg/3 Ml) 3 ml NEB Q4HRRT [facility] Last Admin: 01/14/19 08:59 Dose: 3 ml Aspirin (Halfprin) 81 mg PO DAILY [facility] Budesonide (Pulmicort) 0.25 mg NEB BIDRT [facility] Last Admin: 01/14/19 06:10 Dose: 0.25 mg Diltiazem HCl (Cardizem) 36 mg 0.25 mg/kg (36 mg) IV NOW ONE Stop: 01/12/19 15:57 Last Admin: 01/12/19 16:24 Dose: 36 mg Diltiazem HCl (Cardizem) 50 mg IVPUSH ONETIME ONE Stop: 01/14/19 08:31 Last Admin: 01/14/19 08:15 Dose: 50 mg Diltiazem HCl (Diltiazem) Confirm Administered Dose 125 mg .ROUTE .STK-MED ONE Stop: 01/14/19 08:20 Last Admin: 01/14/19 08:40 Dose: Not Given Diltiazem HCl (Cardizem) 120 mg PO Q8H [facility] Last Admin: 01/15/19 11:45 Dose: Not Given Furosemide (Lasix) 60 mg IVPUSH NOW ONE Stop: 01/12/19 07:50 Last Admin: 01/12/19 09:29 Dose: 60 mg Furosemide (Lasix) 40 mg PO BIDDIURETIC [facility] Last Admin: 01/12/19 17:26 Dose: Not Given Furosemide (Lasix) 20 mg PO BIDDIURETIC [facility] Last Admin: 01/15/19 07:51 Dose: 20 mg Furosemide (Lasix) 40 mg IVPUSH NOW ONE Stop: 01/15/19 11:18 Last Admin: 01/15/19 11:25 Dose: 40 mg Guaifenesin/Phenylephrine HCl (Robitussin Dm) 10 ml PO Q4H [facility] Last Admin: 01/15/19 08:44 Dose: 10 ml Levofloxacin/Dextrose 750 mg/ (Premix) 150 mls @ 100 mls/hr IV ONETIME ONE Stop: 01/10/19 19:38 Last Admin: 01/10/19 19:25 Dose: Not Given Piperacillin Sod/Tazobactam (Sod 4.5 gm/ Sodium Chloride) 100 mls @ 200 mls/hr IV ONETIME ONE Stop: 01/10/19 18:42 Last Admin: 01/10/19 18:34 Dose: 200 mls/hr Sodium Chloride (Normal Saline) 1,000 mls @ 500 mls/hr IV ASDIRECTED [facility] Last Admin: 01/10/19 18:33 Dose: 500 mls/hr Levofloxacin/Dextrose 750 mg/ (Premix) 150 mls @ 100 mls/hr IV ONETIME ONE Stop: 01/10/19 20:13 Last Admin: 01/10/19 19:24 Dose: 100 mls/hr Lactated Ringer's (Ringers, Lactated) 1,000 mls @ 250 mls/hr IV ASDIRECTED [facility] Last Infusion: 01/11/19 00:44 Dose: 250 mls/hr Sodium Chloride (Normal Saline (Advbag)) Confirm Administered Dose 500 mls @ as directed .ROUTE .STK-MED ONE Stop: 01/10/19 21:43 Last Admin: 01/10/19 22:59 Dose: Not Given Vancomycin HCl 2 gm/ Sodium (Chloride) 500 mls @ 250 mls/hr IV ONETIME ONE Stop: 01/10/19 23:59 Last Admin: 01/10/19 22:03 Dose: 250 mls/hr Magnesium Sulfate 4 gm/ Premix 50 mls @ 12.5 mls/hr IV ONETIME ONE Stop: 01/11/19 02:27 Last Admin: 01/10/19 23:04 Dose: 12.5 mls/hr Lactated Ringer's (Ringers, Lactated) 1,000 mls @ 175 mls/hr IV ASDIRECTED [facility] Levofloxacin/Dextrose 750 mg/ (Premix) 150 mls @ 100 mls/hr IV Q48H [facility] Last Admin: 01/11/19 00:43 Dose: Not Given Piperacillin Sod/Tazobactam (Sod 4.5 gm/ Sodium Chloride) 100 mls @ 25 mls/hr IV Q8H [facility] Last Admin: 01/13/19 19:46 Dose: 25 mls/hr Vancomycin HCl 2 gm/ Sodium (Chloride) 500 mls @ 250 mls/hr IV Q24H [facility] Last Admin: 01/12/19 23:36 Dose: Not Given Lactated Ringer's (Ringers, Lactated) 1,000 mls @ 250 mls/hr IV ASDIRECTED [facility] Last Admin: 01/11/19 11:08 Dose: 250 mls/hr Magnesium Sulfate 4 gm/ Premix 100 mls @ 25 mls/hr IV ONETIME ONE Stop: 01/11/19 13:29 Last Admin: 01/11/19 10:09 Dose: 25 mls/hr Magnesium Sulfate 2 gm/ Premix 50 mls @ 25 mls/hr IV ONETIME ONE Stop: 01/12/19 09:44 Last Admin: 01/12/19 09:28 Dose: 25 mls/hr Potassium Chloride 10 meq/ (Premix) 100 mls @ 100 mls/hr IV Q1H [facility] Stop: 01/12/19 09:59 Last Admin: 01/12/19 10:51 Dose: 100 mls/hr Diltiazem HCl 125 mg/ Sodium (Chloride) 125 mls @ 5 mls/hr IV TITRATE [facility]; Protocol Last Titration: 01/13/19 04:04 Dose: 0 mg/hr, 0 mls/hr Levofloxacin/Dextrose 750 mg/ (Premix) 150 mls @ 100 mls/hr IV Q48H [facility] Last Admin: 01/12/19 21:26 Dose: 100 mls/hr Vancomycin HCl 2 gm/ Sodium (Chloride) 500 mls @ 250 mls/hr IV Q18H [facility] Last Admin: 01/13/19 17:22 Dose: 250 mls/hr Potassium Chloride 10 meq/ (Premix) 100 mls @ 100 mls/hr IV Q1H [facility] Stop: 01/13/19 21:29 Last Admin: 01/13/19 21:02 Dose: 100 mls/hr Magnesium Sulfate 4 gm/ Premix 50 mls @ 12.5 mls/hr IV ONETIME ONE Stop: 01/13/19 23:29 Last Admin: 01/13/19 19:56 Dose: 12.5 mls/hr Diltiazem HCl 125 mg/ Sodium (Chloride) 125 mls @ 5 mls/hr IV TITRATE [facility]; Protocol Last Admin: 01/16/19 05:09 Dose: 15 mg/hr, 15 mls/hr Sodium Chloride (Normal Saline) Confirm Administered Dose 1,000 mls @ as directed .ROUTE .STK-MED ONE Stop: 01/14/19 08:31 Last Admin: 01/14/19 08:41 Dose: Not Given Lactated Ringer's (Ringers, Lactated) Confirm Administered Dose 1,000 mls @ as directed .ROUTE .STK-MED ONE Stop: 01/14/19 08:32 Last Admin: 01/14/19 08:48 Dose: Not Given Lactated Ringer's (Ringers, Lactated) 500 mls @ 999 mls/hr IV .BOLUS ONE Stop: 01/14/19 09:05 Last Admin: 01/14/19 08:35 Dose: 999 mls/hr Magnesium Sulfate 2 gm/ Premix 50 mls @ 25 mls/hr IV ONETIME STA Stop: 01/14/19 16:47 Last Admin: 01/14/19 14:55 Dose: 25 mls/hr Amiodarone HCl/Dextrose (Nexterone In Dextrose 150 Mg/100 Ml) 100 mls @ 600 mls /hr IV .BOLUS ONE; Protocol Stop: 01/16/19 10:09 Last Admin: 01/16/19 10:05 Dose: 600 mls/hr Insulin Human NPH (Humulin N) 15 unit SUBCUT BIDAC [facility] Last Admin: 01/11/19 09:00 Dose: Not Given Ketorolac Tromethamine (Toradol) 15 mg IM Q6H PRN PRN Reason: Pain (moderate 4-6) Lorazepam (Ativan) 0.25 mg IVPUSH ONETIME ONE Stop: 01/14/19 16:05 Last Admin: 01/14/19 16:19 Dose: 0.25 mg Lorazepam (Ativan) 1 mg IVPUSH ONETIME ONE Stop: 01/14/19 22:01 Last Admin: 01/14/19 22:29 Dose: 1 mg Lorazepam (Ativan) 1 mg IVPUSH Q6H PRN PRN Reason: Anxiety Last Admin: 01/17/19 16:56 Dose: 1 mg Methylprednisolone Sodium Succinate (Solu-Medrol) Confirm Administered Dose 125 mg .ROUTE .STK-MED ONE Stop: 01/14/19 14:47 Last Admin: 01/14/19 15:18 Dose: Not Given Methylprednisolone Sodium Succinate (Solu-Medrol) 125 mg IVPUSH ONETIME ONE Stop: 01/14/19 14:47 Last Admin: 01/14/19 14:46 Dose: 125 mg Metoprolol Succinate (Toprol Xl) 25 mg PO DAILY [facility] Last Admin: 01/15/19 08:52 Dose: Not Given Metoprolol Tartrate (Lopressor) 5 mg IVPUSH ONETIME ONE Stop: 01/12/19 15:17 Last Admin: 01/12/19 15:22 Dose: 5 mg Metoprolol Tartrate (Lopressor) 5 mg IVPUSH ONETIME ONE Stop: 01/12/19 15:18 Last Admin: 01/12/19 15:40 Dose: 5 mg Metoprolol Tartrate (Lopressor) 5 mg IVPUSH ONETIME PRN PRN Reason: Tachycardia Stop: 01/12/19 17:00 Metoprolol Tartrate (Lopressor) Confirm Administered Dose 5 mg .ROUTE .STK-MED ONE Stop: 01/12/19 15:21 Last Admin: 01/12/19 16:54 Dose: Not Given Metoprolol Tartrate (Lopressor) 50 mg PO BID [facility] Last Admin: 01/16/19 15:52 Dose: Not Given Morphine Sulfate (Morphine) 2 mg IVPUSH Q2H PRN PRN Reason: Pain (severe 7-10) Stop: 01/11/19 19:27 Morphine Sulfate (Morphine) 2 mg IVPUSH Q4H PRN PRN Reason: Pain (severe 7-10) Last Admin: 01/17/19 07:08 Dose: 2 mg Morphine Sulfate (Morphine) 1 mg IVPUSH ONETIME ONE Stop: 01/17/19 08:08 Last Admin: 01/17/19 08:26 Dose: 1 mg Non-Formulary Medication (Glucosamine/D3/Boswellia Nalini [Osteo Bi-Flex Caplet] ) 2 tab PO DAILY [facility] Non-Formulary Medication (Insulin Isophane Nph, Human) 20 units SUBCUT BID [facility] Last Admin: 01/11/19 01:33 Dose: Not Given Pantoprazole Sodium (Protonix) 40 mg PO DAILY [facility] Insulin Isophane Nph , Human 100 Units/Ml 10 Ml Vial Ptom 0 each SUBCUT BIDAC [facility] Last Admin: 01/11/19 08:49 Dose: 20 each Insulin Isophane Nph , Human 100 Units/Ml 10 Ml Vial Ptom 0 each SUBCUT BIDAC [facility] Last Admin: 01/14/19 06:38 Dose: 20 each Vancomycin HCl (Vancocin) Confirm Administered Dose 2 gm .ROUTE .STK-MED ONE Stop: 01/10/19 21:41 Last Admin: 01/10/19 23:47 Dose: Not Given Vancomycin HCl (Pharmacy To Dose - Vancomycin) 1 dose .XX ASDIRECTED PRN PRN Reason: RX TO DOSE VANCOMYCIN Vancomycin HCl (Vancomycin) Confirm Administered Dose 2 gm .ROUTE .STK-MED ONE Stop: 01/11/19 22:31 Last Admin: 01/11/19 22:35 Dose: Not Given - Exam Quality Assessment: Supplemental Oxygen General: Other (ill-appearing male in acute respiratory failure.) Lungs: Decreased Breath Sounds. No: Normal Respiratory Effort (significantly increased respiratory effort.) Cardiovascular: Regular Rhythm - Problem List Review Problem List Initiated/Reviewed/Updated: Yes - My Orders Last 24 Hours: My Active Orders 01/17/19 08:46 Morphine 2 mg IVPUSH Q1H PRN 01/17/19 09:29 Patient Status [ADT] Routine 01/17/19 16:02 Resuscitation Status Routine 01/17/19 18:25 Levalbuterol HCl [Xopenex] 1.25 mg NEB Q2H PRN 01/17/19 18:27 LORazepam [Ativan] 1 mg IVPUSH Q2H PRN - Plan Plan:: Acute on chronic hypoxemic respiratory failure End stage interstitial lung disease COPD Baseline 8L NC with scheduled DuoNebs, Pulmicort and Po Prednisone adn Anoro Ellipta 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 If he is more fatigued place on BiPAP Atrial fibrillation with RVR 01/12--> RVR 140's--> transferred back to ICU for Diltiazem drip --> reverted to sinus 01/14--> RVR 170's--> Back on diltiazem drip --> transitioned to PO 120 TID 01/15 --> Rate controlled hen back into A. fib, restarted on diltiazem drip 01/16--> diltiazem was not controlling rate so patient was started on amiodarone load and drip HR trend 69-135 PLAN - Discontinue diltiazem drip and PO - Start Amiodarone drip - Continue Eliquis Coronary artery disease Severe pulmonary hypertension On Furosemide, isosorbide and metoprolol at home BL LE edema on physical exam RVSP > 60 PLAN - Lasix 40mg PO BID - Strict intake and output - Daily weights Chronic steroid use Hold home PO steroids Start stress dose steroids PLAN - Solumedrol 40mg IV q8h - Glucose control as per diabetes Chest pain in the setting of CAD s/p stent placement Home management with clopidogrel and isosorbide mononitrate Troponin on admission negative PLAN - Continue clopidogrel - Stop isosorbide at home dose - PRN NTG Diabetes mellitus, [id number]% On NPH 28u BID, metformin and glimepiride at home Trend [id number], req 27u on sliding scale PLAN - Accuchecks TID AC and HS - High sensitivity sliding scale - Hypoglycemia protocol - Diabetic diet - Increase insulin to 45 - Hold glimepiride and metformin Hypertension MAP trend 71-113 Home management with metoprolol PLAN - Continue metoprolol at 50% dose - Decrease Diltiazem to BID - PRN Hydralazine 10mg IV for BP > 200/100 Dyslipidemia No acute issues Home management with simvastatin PLAN - Optimize statin due to CAD with rosuvastatin 10mg Polypharmacy Will reconcile according to [facility] criteria prior to discharge Sepsis on admission, resolved Hypomagnesemia/Hypokalemia/Hypophosphatemia, resolved Systolic dysfunction ruled out with echocardiogram Community Acquired PNA, , completed treatment Bacteremia 2/2 Strep salivarius, completed treatment PROPHYLAXIS: DVT- eliquis and clopidogrel GI- home pantoprazole CODE STATUS: DNI DISPOSITION: Patient is in acute respiratory failure and will likely not be able to maintain oxygenation much longer. Family and friends are around bedside. Patient realizes that this is terminal and we have implemented comfort care. The above care will be implemented to keep him comfortable. He is now comfort care.
--- NOTE | 2019-01-18 16:33 | PCM.DCSUM1 ---
Discharge Summary - Hospital Course HPI Initial Comments: This is a 78 year old male with past medical history of interstitial lung disease, COPD and CAD who came to the ED brought in by family members for worsening shortness of breath. As per patient he has been having worsening shortness of breath for a couple of weeks associated with MOYA, orthopnea, exercise intolerance as well as intermittent dry cough that has been steadily getting worse. This morning patient continued to feel short of breath while he was taking a shower, the shortness of breath was so bad he had to go back and lay down in bed. He also associates the symptoms to fevers, chills, Denies night sweats, weight gain, puffy eyes, nausea, vomiting, diarrhea, constipation, sick contacts He has been using his breathing treatments at the same frequency. Last Monday weighed 302 and this morning 299. Diagnosis: Stroke: No - Discharge Data Discharge Date: 01/17/19 Discharge Disposition: 20 Preliminary Cause of *Q: Respiratory Failure Condition: - Referral to Home Health Primary Care Physician: Renato Mueller MD - Patient Summary/Data Consults: Consultations 01/10/19 19:24 Consult to Case Management/Programming Coordinator [CONS] Routine OT Evaluation and Treatment [CONS] Routine PT Evaluation and Treatment [CONS] Routine Respiratory Care Assess and Treatment [CONS] Routine NEIGHBORHOOD AIDE Evaluation and Treatment [CONS] Routine Hospital Course: Patient worsening shortness of breath and needed increasing amounts of oxygen throughout hospitalization. He was on scheduled DuoNeb nebs, Xopenex, Pulmicort , Mucomyst, and Solu-Medrol. He was on antibiotics including vancomycin, Levaquin, and Zosyn. Patient had positive blood cultures for Streptococcus Salivarius. On day 3 of hospitalization he was improving, and therefore transferred out of the ICU. He continued to feel better on day 4 but was transferred back to ICU secondary to rapid ventricular response. He was started on diltiazem drip. On day 5 respiratory status deteriorated again requiring 100 % oxygen on BiPAP. Patient understood that he was not going to improve and agreed to comfort care. Patient has had a long history of respiratory compromise and this was not unexpected. Family was able to make it to bedside and he passed stranded by his family. - Discharge Plan *PRESCRIPTION DRUG MONITORING PROGRAM REVIEWED*: Not Applicable *COPY OF PRESCRIPTION DRUG MONITORING REPORT IN PATIENT BRENT: Not Applicable Home Medications: Home Meds Albuterol Sulfate 1 dose INH TID 05/20/17 [History] Albuterol Sulfate [Proventil Hfa] 2 puff INH Q6HR PRN 05/20/17 [History] Insulin Isophane NPH, Human [NovoLIN N] 28 units SUBCUT BID 05/20/17 [History] Multivitamin with Minerals [Multivitamins with Minerals] 1 tab PO DAILY [History] [place]-3/DHA/Epa/Fish Oil [[place]-3 Fish Oil 1,200 MG Sfgl] 2,000 mg PO DAILY 12/28 [History] Potassium Chloride 20 meq PO BID 05/20/17 [History] Prednisone [IMW: predniSONE] 40 mg PO DAILY 05/20/17 [History] Simvastatin [Zocor] 40 mg PO DAILY 05/20/17 [History] Glucosamine/D3/Boswellia Nalini [Osteo Bi-Flex Caplet] 2 tab PO DAILY 05/12/18 [ History] Budesonide [Pulmicort] 1 inh NEB BID 06/18/18 [History] Furosemide 40 mg PO DAILY 06/18/18 [History] Glimepiride 4 mg PO BID 06/18/18 [History] Metoprolol Succinate [Toprol XL] 25 mg PO DAILY 06/18/18 [History] Sulfamethoxazole/Trimethoprim [Bactrim Ds Tablet] 1 tab PO MOWEFR 06/18/18 [ History] Umeclidinium Brm/Vilanterol Tr [Anoro Ellipta 62.5-25 MCG] 1 puff INH DAILY 10/29 [History] metFORMIN HCl [Metformin HCl] 1,000 mg PO BID 06/18/18 [History] Apixaban [Eliquis] 5 mg PO BID 09/26/18 [History] Nitroglycerin [Nitrostat] 0.4 mg SL ASDIRECTED PRN #4 tab.subl 10/17/18 [Rx] Cholecalciferol (Vitamin D3) [Vitamin D3] 5,000 unit PO DAILY 01/11/19 [History] Patient Handouts: Sepsis, Adult Forms: ED Department Discharge Referrals: Renato Mueller MD [Primary Care Provider] - Kelly Gudino MD [Physician] - - Discharge Summary/Plan Comment DC Time >30 min.: Yes - General Info Date of Service: 01/17/19 Subjective Update: patient passed comfortably with family by bedside - Patient Data Vitals - Most Recent: Last Vital Signs Temp 97.2 F 01/17/19 20:00 Pulse 81 01/17/19 16:00 Resp 29 H 01/17/19 20:00 BP 129/74 01/17/19 20:00 Pulse Ox 63 L 01/17/19 21:12 Weight - Most Recent: 309 lb Lab Results - Last 24 hrs: Laboratory Results - last 24 hr 01/17/19 Range/Units 20:32 POC Glucose 169 H (83-110) mg/dL NATHANIEL Results - Last 24 hrs: Microbiology 01/12/19 21:51 Aerobic Blood Culture - Preliminary Blood - Venous - Lab Draw NO GROWTH AFTER 5 DAYS Anaerobic Blood Culture - Final 01/12/19 21:30 Aerobic Blood Culture - Preliminary Blood - Venous NO GROWTH AFTER 5 DAYS Anaerobic Blood Culture - Preliminary NO GROWTH AFTER 5 DAYS 01/10/19 17:13 Aerobic Blood Culture - Final Blood - Venous NO GROWTH AFTER 7 DAYS Anaerobic Blood Culture - Final Med Orders - Current: Current Medications Discontinued Medications Acetaminophen (Tylenol) 975 mg PO NOW ONE Stop: 01/10/19 17:28 Last Admin: 01/10/19 18:09 Dose: 975 mg Acetaminophen (Tylenol) 650 mg PO Q4H PRN PRN Reason: Pain (Mild 1-3)/fever Acetylcysteine (Mucomyst 20%) 800 mg NEB QIDRT [facility] Last Admin: 01/14/19 08:59 Dose: 800 mg Acetylcysteine (Mucomyst 20%) 800 mg NEB Q6H [facility] Albuterol/Ipratropium (Duoneb 3.0-0.5 Mg/3 Ml) 3 ml NEB Q4HRRT [facility] Last Admin: 01/14/19 08:59 Dose: 3 ml Amiodarone HCl (Cordarone) 200 mg PO BID [facility] Last Admin: 01/17/19 20:55 Dose: Not Given Apixaban (Eliquis) 5 mg PO BID [facility] Last Admin: 01/17/19 20:55 Dose: Not Given Aspirin (Halfprin) 81 mg PO DAILY [facility] Benzonatate (Tessalon Perles) 100 mg PO TID [facility] Last Admin: 01/17/19 20:55 Dose: Not Given Budesonide (Pulmicort) 0.25 mg NEB BIDRT [facility] Last Admin: 01/14/19 06:10 Dose: 0.25 mg Budesonide (Pulmicort) 0.25 mg NEB BID [facility] Last Admin: 01/17/19 21:09 Dose: 0.25 mg Cholecalciferol (Vitamin D3) 5,000 unit PO DAILY [facility] Last Admin: 01/17/19 09:23 Dose: Not Given Dextrose/Water (Dextrose 50% In Water) 50 ml IVPUSH ASDIRECTED PRN PRN Reason: Hypoglycemia Diltiazem HCl (Cardizem) 36 mg 0.25 mg/kg (36 mg) IV NOW ONE Stop: 01/12/19 15:57 Last Admin: 01/12/19 16:24 Dose: 36 mg Diltiazem HCl (Cardizem) 50 mg IVPUSH ONETIME ONE Stop: 01/14/19 08:31 Last Admin: 01/14/19 08:15 Dose: 50 mg Diltiazem HCl (Diltiazem) Confirm Administered Dose 125 mg .ROUTE .STK-MED ONE Stop: 01/14/19 08:20 Last Admin: 01/14/19 08:40 Dose: Not Given Diltiazem HCl (Cardizem) 120 mg PO Q8H [facility] Last Admin: 01/15/19 11:45 Dose: Not Given Diltiazem HCl (Cardizem) 120 mg PO BID [facility] Last Admin: 01/17/19 20:55 Dose: Not Given Fish Oil (Fish Oil) 2 gm PO DAILY [facility] Last Admin: 01/17/19 09:23 Dose: Not Given Furosemide (Lasix) 60 mg IVPUSH NOW ONE Stop: 01/12/19 07:50 Last Admin: 01/12/19 09:29 Dose: 60 mg Furosemide (Lasix) 40 mg PO BIDDIURETIC [facility] Last Admin: 01/12/19 17:26 Dose: Not Given Furosemide (Lasix) 20 mg PO BIDDIURETIC [facility] Last Admin: 01/15/19 07:51 Dose: 20 mg Furosemide (Lasix) 40 mg IVPUSH BID [facility] Last Admin: 01/17/19 20:55 Dose: Not Given Furosemide (Lasix) 40 mg IVPUSH NOW ONE Stop: 01/15/19 11:18 Last Admin: 01/15/19 11:25 Dose: 40 mg Guaifenesin/Codeine Phosphate (Robitussin Ac) 5 ml PO Q4H PRN PRN Reason: COUGH Guaifenesin/Phenylephrine HCl (Robitussin Dm) 10 ml PO Q4H [facility] Last Admin: 01/15/19 08:44 Dose: 10 ml Hydrocortisone Sodium Succinate (Solu-Cortef) 40 mg IVPUSH Q8H [facility] Last Admin: 01/17/19 20:18 Dose: Not Given Levofloxacin/Dextrose 750 mg/ (Premix) 150 mls @ 100 mls/hr IV ONETIME ONE Stop: 01/10/19 19:38 Last Admin: 01/10/19 19:25 Dose: Not Given Piperacillin Sod/Tazobactam (Sod 4.5 gm/ Sodium Chloride) 100 mls @ 200 mls/hr IV ONETIME ONE Stop: 01/10/19 18:42 Last Admin: 01/10/19 18:34 Dose: 200 mls/hr Sodium Chloride (Normal Saline) 1,000 mls @ 500 mls/hr IV ASDIRECTED [facility] Last Admin: 01/10/19 18:33 Dose: 500 mls/hr Levofloxacin/Dextrose 750 mg/ (Premix) 150 mls @ 100 mls/hr IV ONETIME ONE Stop: 01/10/19 20:13 Last Admin: 01/10/19 19:24 Dose: 100 mls/hr Lactated Ringer's (Ringers, Lactated) 1,000 mls @ 250 mls/hr IV ASDIRECTED [facility] Last Infusion: 01/11/19 00:44 Dose: 250 mls/hr Sodium Chloride (Normal Saline (Advbag)) Confirm Administered Dose 500 mls @ as directed .ROUTE .STK-MED ONE Stop: 01/10/19 21:43 Last Admin: 01/10/19 22:59 Dose: Not Given Vancomycin HCl 2 gm/ Sodium (Chloride) 500 mls @ 250 mls/hr IV ONETIME ONE Stop: 01/10/19 23:59 Last Admin: 01/10/19 22:03 Dose: 250 mls/hr Magnesium Sulfate 4 gm/ Premix 50 mls @ 12.5 mls/hr IV ONETIME ONE Stop: 01/11/19 02:27 Last Admin: 01/10/19 23:04 Dose: 12.5 mls/hr Lactated Ringer's (Ringers, Lactated) 1,000 mls @ 175 mls/hr IV ASDIRECTED [facility] Levofloxacin/Dextrose 750 mg/ (Premix) 150 mls @ 100 mls/hr IV Q48H [facility] Last Admin: 01/11/19 00:43 Dose: Not Given Piperacillin Sod/Tazobactam (Sod 4.5 gm/ Sodium Chloride) 100 mls @ 25 mls/hr IV Q8H [facility] Last Admin: 01/13/19 19:46 Dose: 25 mls/hr Vancomycin HCl 2 gm/ Sodium (Chloride) 500 mls @ 250 mls/hr IV Q24H [facility] Last Admin: 01/12/19 23:36 Dose: Not Given Lactated Ringer's (Ringers, Lactated) 1,000 mls @ 250 mls/hr IV ASDIRECTED [facility] Last Admin: 01/11/19 11:08 Dose: 250 mls/hr Magnesium Sulfate 4 gm/ Premix 100 mls @ 25 mls/hr IV ONETIME ONE Stop: 01/11/19 13:29 Last Admin: 01/11/19 10:09 Dose: 25 mls/hr Magnesium Sulfate 2 gm/ Premix 50 mls @ 25 mls/hr IV ONETIME ONE Stop: 01/12/19 09:44 Last Admin: 01/12/19 09:28 Dose: 25 mls/hr Potassium Chloride 10 meq/ (Premix) 100 mls @ 100 mls/hr IV Q1H [facility] Stop: 01/12/19 09:59 Last Admin: 01/12/19 10:51 Dose: 100 mls/hr Diltiazem HCl 125 mg/ Sodium (Chloride) 125 mls @ 5 mls/hr IV TITRATE [facility]; Protocol Last Titration: 01/13/19 04:04 Dose: 0 mg/hr, 0 mls/hr Levofloxacin/Dextrose 750 mg/ (Premix) 150 mls @ 100 mls/hr IV Q48H [facility] Last Admin: 01/12/19 21:26 Dose: 100 mls/hr Vancomycin HCl 2 gm/ Sodium (Chloride) 500 mls @ 250 mls/hr IV Q18H [facility] Last Admin: 01/13/19 17:22 Dose: 250 mls/hr Potassium Chloride 10 meq/ (Premix) 100 mls @ 100 mls/hr IV Q1H [facility] Stop: 01/13/19 21:29 Last Admin: 01/13/19 21:02 Dose: 100 mls/hr Magnesium Sulfate 4 gm/ Premix 50 mls @ 12.5 mls/hr IV ONETIME ONE Stop: 01/13/19 23:29 Last Admin: 01/13/19 19:56 Dose: 12.5 mls/hr Diltiazem HCl 125 mg/ Sodium (Chloride) 125 mls @ 5 mls/hr IV TITRATE [facility]; Protocol Last Admin: 01/16/19 05:09 Dose: 15 mg/hr, 15 mls/hr Sodium Chloride (Normal Saline) Confirm Administered Dose 1,000 mls @ as directed .ROUTE .STK-MED ONE Stop: 01/14/19 08:31 Last Admin: 01/14/19 08:41 Dose: Not Given Lactated Ringer's (Ringers, Lactated) Confirm Administered Dose 1,000 mls @ as directed .ROUTE .STK-MED ONE Stop: 01/14/19 08:32 Last Admin: 01/14/19 08:48 Dose: Not Given Lactated Ringer's (Ringers, Lactated) 500 mls @ 999 mls/hr IV .BOLUS ONE Stop: 01/14/19 09:05 Last Admin: 01/14/19 08:35 Dose: 999 mls/hr Levofloxacin/Dextrose 750 mg/ (Premix) 150 mls @ 100 mls/hr IV Q24H [facility] Last Admin: 01/17/19 09:23 Dose: Not Given Magnesium Sulfate 2 gm/ Premix 50 mls @ 25 mls/hr IV ONETIME STA Stop: 01/14/19 16:47 Last Admin: 01/14/19 14:55 Dose: 25 mls/hr Amiodarone HCl/Dextrose (Nexterone In Dextrose 150 Mg/100 Ml) 100 mls @ 600 mls /hr IV .BOLUS ONE; Protocol Stop: 01/16/19 10:09 Last Admin: 01/16/19 10:05 Dose: 600 mls/hr Amiodarone HCl/Dextrose (Nexterone In Dextrose 360 Mg/200 Ml) 360 mg in 200 mls @ 33.333 mls/hr IV ASDIRECTED [facility]; Protocol Last Admin: 01/16/19 10:26 Dose: 33.333 mls/hr Insulin Human Lispro (Humalog) 0 unit SUBCUT BIDAC [facility]; Protocol Last Admin: 01/17/19 16:18 Dose: 12 units Insulin Human NPH (Humulin N) 15 unit SUBCUT BIDAC [facility] Last Admin: 01/11/19 09:00 Dose: Not Given Ketorolac Tromethamine (Toradol) 15 mg IM Q6H PRN PRN Reason: Pain (moderate 4-6) Levalbuterol HCl (Xopenex) 1.25 mg NEB Q6HRRT [facility] Last Admin: 01/17/19 21:09 Dose: 1.25 mg Levalbuterol HCl (Xopenex) 1.25 mg NEB Q2H PRN PRN Reason: Shortness of Breath Last Admin: 01/17/19 18:35 Dose: 1.25 mg Lorazepam (Ativan) 0.25 mg IVPUSH ONETIME ONE Stop: 01/14/19 16:05 Last Admin: 01/14/19 16:19 Dose: 0.25 mg Lorazepam (Ativan) 1 mg IVPUSH ONETIME ONE Stop: 01/14/19 22:01 Last Admin: 01/14/19 22:29 Dose: 1 mg Lorazepam (Ativan) 1 mg IVPUSH Q6H PRN PRN Reason: Anxiety Last Admin: 01/17/19 16:56 Dose: 1 mg Lorazepam (Ativan) 1 mg IVPUSH Q2H PRN PRN Reason: Anxiety Last Admin: 01/17/19 21:50 Dose: 1 mg Methylprednisolone Sodium Succinate (Solu-Medrol) Confirm Administered Dose 125 mg .ROUTE .STK-MED ONE Stop: 01/14/19 14:47 Last Admin: 01/14/19 15:18 Dose: Not Given Methylprednisolone Sodium Succinate (Solu-Medrol) 125 mg IVPUSH ONETIME ONE Stop: 01/14/19 14:47 Last Admin: 01/14/19 14:46 Dose: 125 mg Metoprolol Succinate (Toprol Xl) 25 mg PO DAILY [facility] Last Admin: 01/15/19 08:52 Dose: Not Given Metoprolol Succinate (Toprol Xl) 12.5 mg PO DAILY [facility] Last Admin: 01/17/19 09:23 Dose: Not Given Metoprolol Tartrate (Lopressor) 5 mg IVPUSH ONETIME ONE Stop: 01/12/19 15:17 Last Admin: 01/12/19 15:22 Dose: 5 mg Metoprolol Tartrate (Lopressor) 5 mg IVPUSH ONETIME ONE Stop: 01/12/19 15:18 Last Admin: 01/12/19 15:40 Dose: 5 mg Metoprolol Tartrate (Lopressor) 5 mg IVPUSH ONETIME PRN PRN Reason: Tachycardia Stop: 01/12/19 17:00 Metoprolol Tartrate (Lopressor) Confirm Administered Dose 5 mg .ROUTE .STK-MED ONE Stop: 01/12/19 15:21 Last Admin: 01/12/19 16:54 Dose: Not Given Metoprolol Tartrate (Lopressor) 50 mg PO BID [facility] Last Admin: 01/16/19 15:52 Dose: Not Given Metoprolol Tartrate (Lopressor) 2.5 mg IVPUSH Q6H PRN PRN Reason: Tachycardia Morphine Sulfate (Morphine) 2 mg IVPUSH Q2H PRN PRN Reason: Pain (severe 7-10) Stop: 01/11/19 19:27 Morphine Sulfate (Morphine) 2 mg IVPUSH Q4H PRN PRN Reason: Pain (severe 7-10) Last Admin: 01/17/19 07:08 Dose: 2 mg Morphine Sulfate (Morphine) 1 mg IVPUSH ONETIME ONE Stop: 01/17/19 08:08 Last Admin: 01/17/19 08:26 Dose: 1 mg Morphine Sulfate (Morphine) 2 mg IVPUSH Q1H PRN PRN Reason: Shortness of Breath Last Admin: 01/17/19 21:44 Dose: 2 mg Nitroglycerin (Nitrostat) 0.4 mg SL ASDIRECTED PRN PRN Reason: Chest Pain Last Admin: 01/13/19 02:00 Dose: 0.4 mg Non-Formulary Medication (Glucosamine/D3/Boswellia Nalini [Osteo Bi-Flex Caplet] ) 2 tab PO DAILY [facility] Non-Formulary Medication (Insulin Isophane Nph, Human) 20 units SUBCUT BID [facility] Last Admin: 01/11/19 01:33 Dose: Not Given Ondansetron HCl (Zofran Odt) 4 mg PO Q6H PRN PRN Reason: nausea, able to take PO Ondansetron HCl (Zofran) 4 mg IV Q6H PRN PRN Reason: Nausea/Vomiting Pantoprazole Sodium (Protonix) 40 mg PO DAILY [facility] Insulin Isophane Nph , Human 100 Units/Ml 10 Ml Vial Ptom 0 each SUBCUT BIDAC [facility] Last Admin: 01/11/19 08:49 Dose: 20 each Insulin Isophane Nph , Human 100 Units/Ml 10 Ml Vial Ptom 0 each SUBCUT BIDAC [facility] Last Admin: 01/14/19 06:38 Dose: 20 each Insulin Isophane Nph , Human 100 Units/Ml 10 Ml Vial Ptom 0 each SUBCUT BIDAC [facility] Last Admin: 01/17/19 16:18 Dose: 35 each Vancomycin HCl (Vancocin) Confirm Administered Dose 2 gm .ROUTE .[employer]-MED ONE Stop: 01/10/19 21:41 Last Admin: 01/10/19 23:47 Dose: Not Given Vancomycin HCl (Pharmacy To Dose - Vancomycin) 1 dose .XX ASDIRECTED PRN PRN Reason: RX TO DOSE VANCOMYCIN Vancomycin HCl (Vancomycin) Confirm Administered Dose 2 gm .ROUTE .STK-MED ONE Stop: 01/11/19 22:31 Last Admin: 01/11/19 22:35 Dose: Not Given Vit A/Vit C/Vit E/Selen/Cu/Zn/Lutei (Icaps Mv) 1 tab PO DAILY [facility] Last Admin: 01/17/19 09:23 Dose: Not Given *Q Meaningful Use (DIS) - VTE *Q VTE Anticoagulation Contraindications: Medical/Procedure Contrai
== END 2019-01-17 22:14 | disposition expired | DRG 871 ==
LOC: JD.ED 16:25 → JD.ICU 18:57 → JD.MS 01-11 15:46 → JD.ICU 01-12 16:01
PROVIDERS: ADMIT Internal Medicine; ATTEND Internal Medicine
PROC: 5A09457 Assistance with Respiratory Ventilation, 24-96 Consecutive Hours, Continuous Positive Airway Pressure (ICD-10-PCS; principal; 2019-01-14)
DX: J18.1 Lobar pneumonia, unspecified organism (principal); A40.8 Other streptococcal sepsis; J96.21 Acute and chronic respiratory failure with hypoxia; J18.9 Pneumonia, unspecified organism; I48.91 Unspecified atrial fibrillation; Z68.41 Body mass index [BMI] 40.0-44.9, adult; E87.2 Acidosis; I25.10 Atherosclerotic heart disease of native coronary artery without angina pectoris; E11.9 Type 2 diabetes mellitus without complications; J43.9 Emphysema, unspecified; I48.0 Paroxysmal atrial fibrillation; J84.10 Pulmonary fibrosis, unspecified; I50.9 Heart failure, unspecified; I11.0 Hypertensive heart disease with heart failure; E78.5 Hyperlipidemia, unspecified; E78.00 Pure hypercholesterolemia, unspecified; F32.9 Major depressive disorder, single episode, unspecified; E66.9 Obesity, unspecified; I27.20 Pulmonary hypertension, unspecified; E83.42 Hypomagnesemia; M05.10 Rheumatoid lung disease with rheumatoid arthritis of unspecified site; E87.6 Hypokalemia; E83.39 Other disorders of phosphorus metabolism; Z87.891 Personal history of nicotine dependence; Z95.5 Presence of coronary angioplasty implant and graft; Z79.4 Long term (current) use of insulin; Z79.82 Long term (current) use of aspirin; Z79.899 Other long term (current) drug therapy; Z79.51 Long term (current) use of inhaled steroids; Z79.01 Long term (current) use of anticoagulants; Z99.81 Dependence on supplemental oxygen
CPT/HCPCS: 36415; 36600; 71045; 80053; 82553; 82803; 83605; 83735; 83880; 84145; 84484; 85007; 85027; 85379; 85610; 85730; 86140; 87040 ×2; 87184; 93005; 94660; 99285; A9270; J2543; J7030; J7040; 51702; 71250; 71250-26; 80048; 80202; 81001; 82962; 83036; 83874; 84100; 85025; 87070; 87106; 87205; 87804; 92610-GN; 93010; 93306; 94640; 94667; 94668; 96365; 97161-GP; 97165-GO; 97530-GO; 99222; 99232; 99238; J0282; J1720; J1815-GY; J1940; J1956; J2060; J2270; J2930; J3370; J3475; J3480; J3490; J7120; J7612-GY; J7620-GY